=== PATIENT | female | born 1990 | race African-American/Black ===

== ENCOUNTER 2020-03-28 12:11 | Emergency (ER) | payer OTHER, SELFPAY ==
--- NOTE | 2020-03-28 12:32 | PC.NURSE ---
1232- Pt went from triage to restroom for urine sample.
[2020-03-28 12:33] VITALS: BP 134/79; PULSE 71; RESP 16; TEMP 36.7; O2SAT 99
--- NOTE | 2020-03-28 12:42 | ED.GENADULT ---
HPI - General Adult General Chief complaint: Urogenital-Female Stated complaint: POSSIBLE UTI Time Seen by Provider: 03/28/20 12:42 Source: patient Mode of arrival: ambulatory Limitations: no limitations History of Present Illness HPI narrative: 29-year-old female patient presents to the [facility] with complaints of urinary symptoms that started about 3 days ago. Patient states it started as vaginal itching today she noticed some pain with urination. Patient also complains of increased urgency. Denies any back pain but states she has had a little bit of diarrhea and nausea. Denies any vomiting. Denies any fevers, body aches or chills. Patient states she is supposed to be starting her period sometime next week. Patient states that she has not had any vaginal discharge no concerns for STDs. Related Data Allergies Allergy/AdvReac Type Severity Reaction Status Date / Time No Known Allergies Allergy Verified 03/28/20 12:40 Review of Systems Review of Systems: Narrative: CONSTITUTIONAL: Denies fever, chills, or sweats. EYES: Denies visual changes, redness, or discharge. ENT: Denies rhinorrhea, congestion, sore throat, or otalgia. CARDIOVASCULAR: Denies chest pain, palpitations, or edema. RESPIRATORY: Denies cough or dyspnea. GASTROINTESTINAL: Denies abdominal pain, nausea, vomiting, or diarrhea. GENITOURINARY: Denies dysuria or hematuria. Positive pain with urination, vaginal itching and urinary frequency x3 days SKIN: Denies rash or itching. MUSCULOSKELETAL: Denies back pain, joint pain, or myalgia. NEUROLOGIC: Denies headache, numbness, or weakness. PSYCHIATRIC: Denies anxiety or depression. [facility] Past Medical History Medical History (Updated 03/28/20 @ 12:53 by ARIANA Rodas) Angina at rest GERD (gastroesophageal reflux disease) Hypertension Ovarian cyst Seizures Surgical History Surgical History (Updated 03/28/20 @ 12:43 by ARIANA Rodas) H/O inguinal hernia repair History of appendectomy Hx of cholecystectomy Family History Family History (Updated 03/28/20 @ 12:46 by ARIANA Rodas) Father Hypertension Mother Hypertension Asthma Grandparent Diabetes mellitus Alzheimer disease Cerebrovascular accident Cardiac abnormality Other Sickle cell anemia Social History Social History (Updated 03/28/20 @ 12:47 by ARIANA Rodas) Smoking status: Former smoker Gender identity (if verbalized by the patient): Female Comments At the time of my signature I agree with nursing past medical history, surgical, social, and family history. There is no relevant family history pertinent to the presenting complaint. Exam Narrative: Exam Narrative: GENERAL: Well-appearing, well-nourished, and in no acute distress. HEAD: Normocephalic, atraumatic. EYES: PERRLA and EOMI. ENT: Nares clear, no rhinorrhea or epistaxis. Mucous membranes moist. NECK: Supple. No lymphadenopathy CHEST: Clear to auscultation. No respiratory distress. HEART: Regular rate and rhythm. No murmur heard. Normal peripheral pulses. ABDOMEN: Soft, nontender, nondistended, normal active bowel sounds. No CVA tenderness on percussion EXTREMITIES: Normal range of motion. No edema. SKIN: Warm, dry, no rash. NEURO: No focal deficits. Alert and oriented x3. Course Vital Signs Vital signs: Vital Signs Temperature 36.7 C 03/28/20 12:33 Pulse Rate 71 03/28/20 12:33 Respiratory Rate 16 03/28/20 12:33 Blood Pressure 134/79 03/28/20 12:33 Pulse Oximetry 99 03/28/20 12:33 Temperature 36.7 C 03/28/20 12:33 Pulse Rate 71 03/28/20 12:33 Respiratory Rate 16 03/28/20 12:33 Blood Pressure 134/79 03/28/20 12:33 Pulse Oximetry 99 03/28/20 12:33 Vital signs reviewed. Medical Decision Making Differential Diagnosis Differential Diagnosis: Differential diagnosis: Uncomplicated lower UTI, uncomplicated UTI, pyelonephritis Medicare patient is to obtain a urine dip and test
== END 2020-03-28 13:00 | disposition home or self-care (01) ==
PROVIDERS: Emergency Provider Nurse Practitioner Family; PCP Family Medicine
DX: N30.01 Acute cystitis with hematuria (principal); Z87.891 Personal history of nicotine dependence; K21.9 Gastro-esophageal reflux disease without esophagitis; I10 Essential (primary) hypertension
CPT/HCPCS: 81003; 81025; 87086; 87088; 99213; G0463

== ENCOUNTER 2020-06-05 14:31 | Emergency (ER) | payer OTHER, SELFPAY ==
[2020-06-05 14:53] VITALS: BP 123/62; PULSE 79; RESP 16; TEMP 37.2; O2SAT 100
--- NOTE | 2020-06-05 14:53 | ED.URI ---
HPI - URI/Sore Throat General Chief Complaint: Upper Respiratory Infection Stated Complaint: sore throat Time Seen by Provider: 06/05/20 14:45 Source: patient and RN notes reviewed Mode of arrival: ambulatory Limitations: no limitations History of Present Illness HPI Narrative: 30-year-old female presents concern for sore throat that started today. Reports daughter has similar symptoms. Reports she works at [employer], and has to be screened when she goes to work. Denies any known exposure to Covid. She denies shortness of breath, cough, fever, malaise, body aches, chills, sweats. Denies any intervention for symptoms. MD elicited complaint: sore throat Related Data Allergies Allergy/AdvReac Type Severity Reaction Status Date / Time No Known Allergies Allergy Verified 03/28/20 12:40 Review of Systems Review of Systems: Narrative: CONSTITUTIONAL: Denies malaise, chills, sweats, or fever. EYES: Denies visual changes, redness, or discharge. ENT: Denies rhinorrhea, congestion, sinus pain, otalgia. Reports sore throat. CARDIOVASCULAR: Denies chest pain, palpitations, or edema. RESPIRATORY: Denies cough dyspnea. GASTROINTESTINAL: Denies abdominal pain, nausea, vomiting, diarrhea SKIN: Denies rash or itching. MUSCULOSKELETAL: Denies myalgia. NEUROLOGIC: Denies headache. All systems reviewed & are unremarkable except as noted in HPI and below PMFSH Past Medical History Medical History (Updated 06/05/20 @ 15:16 by Kristin Rendon NP) Angina at rest GERD (gastroesophageal reflux disease) Hypertension Ovarian cyst Seizures Surgical History Surgical History (Updated 03/28/20 @ 12:43 by ARIANA Rodas) H/O inguinal hernia repair History of appendectomy Hx of cholecystectomy Family History Family History (Updated 03/28/20 @ 12:46 by ARIANA Rodas) Father Hypertension Mother Hypertension Asthma Grandparent Diabetes mellitus Alzheimer disease Cerebrovascular accident Cardiac abnormality Other Sickle cell anemia Social History Social History (Updated 03/28/20 @ 12:47 by ARIANA Rodas) Smoking status: Former smoker Gender identity (if verbalized by the patient): Female Comments At time of signature, agree with nursing past medical, surgical, social and family history. There is no relevant family history pertinent to the presenting complaint Exam Narrative: Exam Narrative: GENERAL: Well-appearing, well-nourished, and in no acute distress. HEAD: Normocephalic EYES: PERRLA, conjunctivae clear ENT: Nares clear, turbinates erythematous, clear discharge. Mucous membranes moist. TM pearly mahajan with dull light reflex bilaterally; no tragal tenderness. Oropharynx erythematous without lesions. Tonsils not enlarged and without exudate, no drooling, no hoarseness, no trismus, uvula midline. NECK: Supple. No lymphadenopathy CHEST: Clear to auscultation, breath sounds equal. No wheezing, rhonchi, rales, or stridor. No respiratory distress, speaks in full sentences. HEART: Regular rate and rhythm. No murmur heard. SKIN: Warm, dry, no rash. NEURO: Alert and oriented x3. PSYCH: Normal mood and affect Course Course Emergency Course: Patient is aware of diagnosis, understands and agrees to treatment plan. Anticipatory guidance given. Patient agrees to follow-up as directed and is aware of reasons to seek care at the emergency department. Portions of this record may have been created with voice recognition software Vital Signs Vital signs: Vital Signs Temperature 98.9 F 06/05/20 14:53 Pulse Rate 79 06/05/20 14:53 Respiratory Rate 16 06/05/20 14:53 Blood Pressure 123/62 06/05/20 14:53 Pulse Oximetry 100 06/05/20 14:53 Temperature 98.9 F 06/05/20 14:53 Pulse Rate 79 06/05/20 14:53 Respiratory Rate 16 06/05/20 14:53 Blood Pressure 123/62 06/05/20 14:53 Pulse Oximetry 100 06/05/20 14:53 Reviewed. MDM - URI/Sore Throat MDM Narrative Medical decision m
== END 2020-06-05 15:27 | disposition home or self-care (01) ==
PROVIDERS: Emergency Provider Nurse Practitioner; PCP Family Medicine
DX: J06.9 Acute upper respiratory infection, unspecified (principal); Z20.828 Contact with and (suspected) exposure to other viral communicable diseases; Z87.891 Personal history of nicotine dependence; K21.9 Gastro-esophageal reflux disease without esophagitis; I10 Essential (primary) hypertension
CPT/HCPCS: 87081; 87880; 99213; G0463

== ENCOUNTER 2020-06-06 06:55 | Outpatient (NON) | payer OTHER, SELFPAY ==
[2020-06-07 01:19] LABS: SARS-CoV-2 RNA PCR Negative
== END 2020-06-06 06:56 ==
LOC: ANHCOVIDDT 07:15
PROVIDERS: PCP Family Medicine; Visit Provider Nurse Practitioner
DX: J06.9 Acute upper respiratory infection, unspecified (principal); Z20.828 Contact with and (suspected) exposure to other viral communicable diseases
CPT/HCPCS: 87635; C9803; U0003

== ENCOUNTER 2020-06-24 13:12 | Emergency (ER) | payer OTHER, SELFPAY ==
[2020-06-24 13:25] VITALS: BP 109/69; PULSE 91; RESP 18; TEMP 36.5; O2SAT 100
--- NOTE | 2020-06-24 13:43 | ED.SKABFB ---
HPI - Skin/Abscess/Foreign Bdy General Chief complaint: Skin/Abscess/Foreign Body Stated complaint: rash on face Time Seen by Provider: 06/24/20 13:34 Source: patient and RN notes reviewed Mode of arrival: ambulatory Limitations: no limitations History of Present Illness HPI narrative: Patient presents today complaining of rash to her left exterior nose x2 days. Reports it started off as a burning sensation, but this has mostly resolved. States it is itching profusely. She has tried Neosporin, which causes a burning sensation. She is also trying Benadryl cream, which she states makes the symptoms worse. She has been wearing masks frequently as needed. Denies history of abscesses, boils, staph infections. No recent illness. MD complaint: rash Related Data Allergies Allergy/AdvReac Type Severity Reaction Status Date / Time No Known Allergies Allergy Verified 06/07/20 14:58 Review of Systems Review of Systems: Narrative: CONSTITUTIONAL: Denies body aches, fever, chills, or sweats. EYES: Denies visual changes, redness, or discharge. ENT: Denies rhinorrhea, congestion, sore throat, or otalgia. CARDIOVASCULAR: Denies chest pain, palpitations, or edema. RESPIRATORY: Denies cough or dyspnea. GASTROINTESTINAL: Denies abdominal pain, nausea, vomiting, or diarrhea. GENITOURINARY: Denies dysuria or hematuria. SKIN: Denies wounds. + Pruritic rash to face MUSCULOSKELETAL: Denies back pain, joint pain, or myalgia. NEUROLOGIC: Denies headache, numbness, tingling, or weakness. PSYCH: Denies depression or anxiety. [facility] Past Medical History Medical History (Updated 06/24/20 @ 13:45 by Lauren Underwood, [facility]) Angina at rest GERD (gastroesophageal reflux disease) Hypertension Ovarian cyst Seizures Surgical History Surgical History (System 06/07/20 @ 14:58 by Virginia Lopez) H/O inguinal hernia repair History of appendectomy Hx of cholecystectomy Family History Family History (System 06/07/20 @ 14:58 by Virginia Lopez) Father Hypertension Mother Hypertension Asthma Grandparent Diabetes mellitus Alzheimer disease Cerebrovascular accident Cardiac abnormality Father Hypertension Cerebrovascular accident Mother Asthma Family history of multiple sclerosis Hypertension Sibling Asthma Other Family history of allergic disorder Family history of cardiovascular disease Family history of malignant neoplasm Sickle cell anemia Social History Social History (System 06/07/20 @ 14:58 by Virginia Lopez) Smoking status: Former smoker Alcohol intake: never Gender identity (if verbalized by the patient): Female Comments At time of signature, I have reviewed and agree with nursing past medical, surgical, social and family history unless otherwise noted. Please see nursing chart for further information. There is no relevant family history pertinent to the presenting complaint Exam Narrative: Exam Narrative: GENERAL: Well-appearing, well-nourished, and in no acute distress. HEAD: Normocephalic, atraumatic. EYES: EOMI. No redness or drainage. Conjunctivae normal. ENT: Mucous membranes pink and moist. No rhinorrhea. Along the left external nare there is honey crusting lesions, slightly extending into the septal mucosa. NECK: Normal AROM. Supple. No lymphadenopathy. CHEST: No respiratory distress. EXTREMITIES: Normal range of motion. No edema. SKIN: Warm, dry. Capillary refill normal. Normal skin turgor. NEURO: No focal deficits. Alert and oriented x3. Gait steady. PSYCH: Normal affect. No signs of depression or anxiety. Course Vital Signs Vital signs: Vital Signs Temperature 97.7 F 06/24/20 13:25 Pulse Rate 91 06/24/20 13:25 Respiratory Rate 18 06/24/20 13:25 Blood Pressure 109/69 06/24/20 13:25 Pulse Oximetry 100 06/24/20 13:25 Temperature 97.7 F 06/24/20 13:25 Pulse Rate 91 06/24/20 13:25 Respiratory Rate 18 06/24/20 13:25 Blo
== END 2020-06-24 13:53 | disposition home or self-care (01) ==
PROVIDERS: Emergency Provider Nurse Practitioner; PCP Family Medicine
DX: L01.00 Impetigo, unspecified (principal); Z87.891 Personal history of nicotine dependence; I20.9 Angina pectoris, unspecified; K21.9 Gastro-esophageal reflux disease without esophagitis; I10 Essential (primary) hypertension
CPT/HCPCS: 99213; G0463

== ENCOUNTER 2020-11-25 19:10 | Emergency (ER) | payer OTHER, SELFPAY ==
--- NOTE | 2020-11-25 19:21 | ED.SKABFB ---
HPI - Skin/Abscess/Foreign Bdy General Chief complaint: Skin/Abscess/Foreign Body Stated complaint: rash Time Seen by Provider: 11/25/20 19:21 Source: patient Mode of arrival: ambulatory Limitations: no limitations History of Present Illness HPI narrative: Rubén Zamora is a 30 yo female who comes to express care with a rash on her face and around her eyes that is starting to spread-she denies any exposure to an allergen and states that last time she had strep she has similar symptoms Related Data Home Medications Medication Instructions Recorded Confirmed norgestimate-ethinyl estradiol tablet 11/25/20 [Sprintec (28)] Allergies Allergy/AdvReac Type Severity Reaction Status Date / Time No Known Allergies Allergy Verified 06/07/20 14:58 Review of Systems Review of Systems: Narrative: CONSTITUTIONAL: Denies fever, chills, sweats. EYES: Denies visual changes, redness, discharge. ENT: Denies rhinorrhea, congestion, has sore throat, otalgia. CARDIOVASCULAR: Denies chest pain, palpitations, edema. RESPIRATORY: Denies dyspnea, wheezing, cough GASTROINTESTINAL: Denies abdominal pain, nausea, vomiting, diarrhea. GENITOURINARY: Denies dysuria, hematuria, abnormal discharge SKIN: Has a rash. On face and around eyes and lips NEUROLOGIC: Denies numbness, or focal weakness. PSYCHIATRIC: Denies anxiety or depression. PMFSH Past Medical History Medical History Angina at rest GERD (gastroesophageal reflux disease) Hypertension Ovarian cyst Seizures Surgical History Surgical History H/O inguinal hernia repair History of appendectomy Hx of cholecystectomy Family History Family History Father Hypertension Mother Hypertension Asthma Grandparent Diabetes mellitus Alzheimer disease Cerebrovascular accident Cardiac abnormality Father Hypertension Cerebrovascular accident Mother Asthma Family history of multiple sclerosis Hypertension Sibling Asthma Other Family history of allergic disorder Family history of cardiovascular disease Family history of malignant neoplasm Sickle cell anemia Social History Social History Smoking status: Former smoker Alcohol intake: never Gender identity (if verbalized by the patient): Female Exam Narrative: Exam Narrative: GENERAL: This is a well-nourished, well-developed patient, in mild distress. Full exposure to pursue a stress strep and is developing a rash and sore throat HEAD: normocephalic, atraumatic. EYES: Sclera clear/white. Vision is grossly intact. EARS: External ears normal, . Hearing grossly intact. NOSE: External nose normal without nasal discharge, nares without redness, no rhinorrhea. THROAT: Mucous membranes moist, posterior pharynx erythema, skin around face is looking tight eyes are puffy, rash on face NECK: Neck supple, non-tender CARDIOVASCULAR: Regular rate and rhythm without murmurs, gallops, or rubs. RESPIRATORY: Clear to auscultation. Breath sounds equal bilaterally. No wheezes, rales, or rhonchi. GASTROINTESTINAL: Abdomen soft, non-tender, SKIN: warm, intact with lesions / branden face, good texture and turgor. NEURO: awake, alert, and oriented to person, place and time. There were no obvious focal neurologic abnormalities. Steady gait EXTREMITIES: Normal range of motion. BACK: Nontender without deformity Course Course Emergency Course: Mother had further exposure to these with strep that was diagnosed here earlier, mother is breaking out in rash and swelling of her face sore throat Started on amoxicillin and mupirocin, Medrol Dosepak for swelling of face Vital Signs Vital signs: Vital Signs Temperature 97.7 F 11/25/20 19:27 Pulse Rate 87 11/25/20 19:27 Respiratory Rate 16 11/25/20 1
[2020-11-25 19:27] VITALS: BP 133/77; PULSE 87; RESP 16; TEMP 36.5; O2SAT 100
== END 2020-11-25 19:50 | disposition home or self-care (01) ==
PROVIDERS: Emergency Provider Nurse Practitioner
DX: L01.00 Impetigo, unspecified (principal); Z20.818 Contact with and (suspected) exposure to other bacterial communicable diseases; K21.9 Gastro-esophageal reflux disease without esophagitis; I10 Essential (primary) hypertension; I25.10 Atherosclerotic heart disease of native coronary artery without angina pectoris
CPT/HCPCS: 99213; G0463

== ENCOUNTER 2021-07-27 14:01 | Emergency (ER) | payer OTHER, SELFPAY ==
--- NOTE | ~2021-07-27 | CT_ITS ---
EXAMINATION: CT abdomen pelvis wo con DATE: 07/27/2021 15:53 INDICATION: Abdominal mass. TECHNIQUE: Computed tomography (CT) of the abdomen and pelvis was performed without intravenous contr ast. Automated exposure control and iterative reconstruction technique were employed. The dose-length product was 1474.61 mGy-cm. COMPARISON: CT abdomen and pelvis 08/08/2016 FINDINGS: The visualized portions of the lung bases are clear without pneumonia or pleural effusion. The heart size is normal. No pericardial effusion. The liver is normal. There are changes of cholecys tectomy. The spleen, pancreas, adrenal glands, and kidneys are normal. There is no urolithiasis. Ther e are no dilated loops of bowel. There are changes of appendectomy. There are no pathologically enlar ged lymph nodes. There is no free intraperitoneal fluid. There is an umbilical hernia containing fat. There is mild thoracolumbar spondylosis. IMPRESSION: 1. Umbilical hernia containing fat. Reviewed, dictated and finalized at location B. HER
[2021-07-27 14:05] VITALS: BP 148/62; PULSE 88; RESP 15; TEMP 35.9; O2SAT 100
--- NOTE | 2021-07-27 14:34 | ED.ABDPAIN ---
HPI - Abdominal Pain General Chief Complaint: Abdominal Pain Stated Complaint: Abdominal pain Time Seen by Provider: 07/27/21 14:29 Source: patient Mode of arrival: ambulatory Limitations: no limitations History of Present Illness HPI narrative: Patient is a 31-year-old female complaining abdominal pain, I think it is a hernia , periumbilical area, 7 out of 10, nonradiating, dull, started 2 days ago. Patient denies any chest pain, shortness of breath, nausea, vomiting, diarrhea, fever, chills or urinary symptoms Related Data Home Medications Medication Instructions Recorded Confirmed norgestimate-ethinyl estradiol tablet 11/25/20 [Sprintec (28)] Allergies Allergy/AdvReac Type Severity Reaction Status Date / Time No Known Allergies Allergy Verified 06/07/20 14:58 Review of Systems Review of Systems: All systems reviewed & are unremarkable except as noted in HPI and below Constitutional: Constitutional: Denies body ache(s), Denies chills, Denies excessive sweating, Denies fatigue, Denies fever(s), Denies headache(s), Denies lethargy, Denies malaise, Denies weakness and Denies weight loss Eyes: Eyes: Denies blurry vision, Denies change in vision and Denies loss of vision ENT: Denies dizziness, Denies ear discharge, Denies headache(s), Denies lip swelling, Denies epistaxis, Denies nasal congestion, Denies neck pain, Denies throat swelling and Denies tongue swelling Cardiovascular: Cardiovascular: Denies chest pain, Denies chest pain at rest, Denies chest pain with activity, Denies diaphoresis, Denies rapid heart rate, Denies edema, Denies irregular heart rhythm, Denies lightheadedness, Denies palpitations, Denies dyspnea and Denies dyspnea on exertion Respiratory: Respiratory: Denies chest congestion, Denies cough, Denies hemoptysis, Denies dyspnea and Denies dyspnea on exertion Gastrointestinal: Gastrointestinal: Denies melena, Denies hematochezia, Denies diarrhea, Denies nausea, Denies vomiting and Denies hematemesis Musculoskeletal: Musculoskeletal: Denies abnormal gait, Denies deformity, Denies joint swelling, Denies limited range of motion, Denies neck pain and Denies numbness Neurologic: Denies Abnormal speech present, Denies abnormal gait, Denies confusion, Denies dizziness, Denies headache(s), Denies focal weakness, Denies loss of vision, Denies numbness, Denies Other visual disturbances, Denies Sensory deficit (Neuro) and Denies weakness Psychiatric: Psychiatric: Denies confusion, Denies depression, Denies auditory hallucinations, Denies homicidal ideation and Denies suicidal ideation Endocrine: Endocrine: Denies cold intolerance, Denies excessive sweating, Denies fatigue, Denies heat intolerance and Denies palpitations Hematologic/Lymphatic: Hematologic/Lymphatic: Denies easy bleeding and Denies easy bruising Allergic/Immunologic: Allergic/Immunologic: Denies lip swelling, Denies throat swelling and Denies tongue swelling PMFSH Past Medical History Medical History Angina at rest GERD (gastroesophageal reflux disease) Hypertension Ovarian cyst Seizures Surgical History Surgical History H/O inguinal hernia repair History of appendectomy Hx of cholecystectomy Family History Family History Father Hypertension Mother Hypertension Asthma Grandparent Diabetes mellitus Alzheimer disease Cerebrovascular accident Cardiac abnormality Father Hypertension Cerebrovascular accident Mother Asthma Family history of multiple sclerosis Hypertension Sibling Asthma Other Family history of allergic disorder Family history of cardiovascular disease Family history of malignant neoplasm Sickle cell anemia Social History Social History Smoking status: Former smoker [place]
[2021-07-27] MEDS: KETOROLAC 30 MG/ML VIAL (*BKC) IV PUSH (14:54)
[2021-07-27 14:56] LABS: Add Urine Microscopic? YES; Appearance Urine Cloudy (Clear); Bacteria Urine Trace /hpf; Bilirubin Urine Negative (Negative); Blood Urine Negative (Negative); Color Urine Yellow (Yellow); Glucose Urine UA Negative (Negative); Ketones Urine Trace mg/dL (Negative); Leukocyte Esterase Ur Negative LEU/UL (Negative); Mucus Urine Heavy /lpf; Nitrate Urine Negative (Negative); Protein Urine 1+ mg/dL (Negative); Specific Grav Ur 1.021 (1.001-1.035); Squamous Epithelial Cell Urine Many /hpf (Few); Urobilinogen Urine Negative mg/dL (<2.0)
[2021-07-27] MEDS: PROMETHAZINE HCL 25 MG/ML AMPUL 12.5 MG IV PUSH (14:56)
[2021-07-27 16:27] LABS: Pregnancy On Board Control Positive; Urine Pregnancy Test Negative
[2021-07-27 16:30] LABS: Basophils Percent Auto 0.7 % (0.2-1.2); Eosinophils Absolute Auto 0.4 K/mm3 (0-0.3); Eosinophils Percent Auto 6.9 % (0-4.4); Hematocrit 29.8 % (37.0-47.0); Hemoglobin 7.9 g/dL (12.0-15.0); Immature Granulocyte Absolute 0.01 K/mm3 (0.00-0.031); Immature Granulocyte Percent A 0.2 % (0-0.5); Immature Platelet Fraction Pct 8.7 % (0.9-11.2); Lymphocytes Absolute Auto 1.65 K/mm3 (0.9-3.2); Lymphocytes Percent Auto 27.3 % (18.3-44.2); Mean Corpuscular HGB Conc 26.5 g/dl (32-36); Mean Corpuscular Volume 56.7 fl (80-100); Monocytes Absolute Auto 0.3 K/mm3 (0.1-0.6); Monocytes Percent Auto 4.8 % (2.6-8.5); Neutrophils Absolute Auto 3.6 K/mm3 (1.3-6.7); Neutrophils Percent Auto 60.1 % (45.5-73.1); Platelet Count Result 274 k/mm3 (150-375); Red Blood Count 5.26 M/mm3 (4.2-5.4); Red Cell Distribution Width 22.9 % (11.5-14.5); White Blood Count 6.1 K/mm3 (4.5-10.0)
[2021-07-27 16:35] LABS: Alanine Aminotransferase 20 U/L (4-35); Albumin Level 4.5 g/dL (3.5-5.1); Alkaline Phosphatase 128 U/L (38-126); Anion Gap 8 mmol/L (8-16); Aspartate Amino Transferase 32 U/L (14-36); Bilirubin,Total 0.4 mg/dL (0.2-1.3); Blood Urea Nitrogen 12 mg/dL (7-17); Calcium 10.7 mg/dL (8.4-10.2); Carbon Dioxide 26 mmol/L (22-30); Chloride 105 mmol/L (98-107); Estimated CRCL calculation 113 ml/min; Estimated Glomerular Filt Rate > 60; Glucose 82 mg/dL (65-110); Lipase 27 U/L (23-300); Potassium 4.1 mmol/L (3.4-5.0); Sodium 139 mmol/L (137-145)
[2021-07-27 17:04] VITALS: BP 146/75; PULSE 80; RESP 14; O2SAT 98
== END 2021-07-27 17:04 | disposition home or self-care (01) ==
PROVIDERS: Emergency Provider Emergency Medicine; PCP Family Medicine
DX: K42.9 Umbilical hernia without obstruction or gangrene (principal); D64.9 Anemia, unspecified; K21.9 Gastro-esophageal reflux disease without esophagitis; I10 Essential (primary) hypertension; Z87.891 Personal history of nicotine dependence
CPT/HCPCS: 36415; 74176; 80053; 81001; 81025; 83690; 85025; 85055; 87086; 87088; 96374; 96375; 99284; J1885; J2550

== ENCOUNTER 2021-10-18 03:06 | Inpatient (IN) | payer OTHER, SELFPAY ==
[2021-10-18] VITALS (16 sets, daily range): BP systolic 100–176; BP diastolic 58–103; PULSE 62–93; RESP 16–18; TEMP 36.3–36.7; O2SAT 97–100; BMI 48.6
--- NOTE | 2021-10-18 | ECHO_ITS ---
Patient Info Name: Ritika Zamora Age: 31 years : 1990 Gender: Female Ht: 67 in Wt: 310 lbs BSA: 2.66 m2 HR: 78 bpm BP: 129 / 69 mmHg Heart Rhythm: Sinus Rhythm Technical Quality: Good Exam Date: 10/18/2021 3:45 PM Exam Location: [facility] Pulmonary Exam Room: 333 Patient Status: Outpatient Admit Date: 10/18/2021 Staff Ordering Physician: Amaury Walsh MD Surface Grinder Tender: Nidia Garcia RDCS Attending Provider: Amaury Walsh MD Exam Type: CA echo doppler color flow Study Info Indications - PE Complete two-dimensional, color flow and Doppler transthoracic echocardiogram is performed. Summary 1. Complete two-dimensional, color flow and Doppler transthoracic echocardiogram is performed. 2. Borderline left ventricular enlargement with normal wall thickness. Good systolic function of all segments with an estimated ejection fraction of 58%. Normal diastolic function. 3. Left atrial chamber dimension is mildly enlarged. 4. Mild pulmonary hypertension, estimated pulmonary arterial systolic pressure is 36 mmHg. 5. Right ventricle is not well seen but appears to have normal size and contractility. 6. No significant valve disease. 7. Normal sinus rhythm. Left Ventricle Left ventricular chamber dimension is mildly enlarged. Left ventricular systolic function is normal, estimated at 55-60%. There is no increased left ventricular wall thickness. Left ventricular septal wall motion is normal. The left ventricular diastolic function is normal. Right Ventricle Right ventricular chamber dimension is normal. Right ventricular systolic function is normal. Left Atria Left atrial chamber dimension is mildly enlarged. Right Atria Right atrial chamber dimension is normal. Aortic Valve The aortic valve is trileaflet. There is no aortic valve sclerosis. There is no aortic valve stenosis. There is no aortic valve regurgitation. Pulmonic Valve The pulmonic valve is normal. There is no pulmonic valve stenosis. There is no pulmonic regurgitation. Mitral Valve The mitral valve has normal leaflets. There is no mitral valve stenosis. There is no mitral valve regurgitation. Tricuspid Valve The tricuspid valve leaflets are normal. There is no significant tricuspid valve stenosis. There is trace tricuspid valve regurgitation. Mild pulmonary hypertension, estimated pulmonary arterial systolic pressure is 36 mmHg. Pericardium/Pleural The pericardium appears normal. There is no pericardial effusion. Inferior Vena Cava Normal inferior vena cava with >50% collapse upon inspiration consistent with Empty right atrial pressure, 10 mmHg. Aorta The aortic root size at the sinus of Valsalva is normal. The prox ascending aorta size is normal. Left Ventricular Outflow Tract Name Value Normal LVOT 2D LVOT Diameter 2.1 cm LVOT Doppler LVOT Peak Gradient 8 mmHg LVOT Mean Gradient 5 mmHg LVOT VTI 31 cm LVOT VTI/AV VTI Ratio 0.8 LVOT Stroke V
--- NOTE | ~2021-10-18 | CT_ITS ---
EXAMINATION: CTA chest PE abdomen pel DATE: 10/18/2021 04:46 INDICATION: Chest pain. TECHNIQUE: Computed tomography angiography (CTA) of the chest was performed with 100 mL Omnipaque-350 intravenous contrast timed to evaluate the pulmonary arteries. Coronal maximum intensity projection 3D-reconstructions were created by the technologist. Computed tomography (CT) of the abdomen and pelv is was performed with intravenous contrast. Automated exposure control and iterative reconstruction t echnique were employed. The dose-length product was 2503.49 mGy-cm. COMPARISON: CT abdomen and pelvis 07/27/2021 FINDINGS: CTA chest: There is no pneumonia or pleural effusion. The heart size is normal. No pericardial effusi on. There is a filling defect in a left upper lobe pulmonary artery. There is mild thoracic spondylos is. CT abdomen and pelvis: The liver is normal. There are changes of cholecystectomy. The spleen, pancrea s, adrenal glands, and kidneys are normal. There is an umbilical hernia containing fat. There are no dilated loops of bowel. There are changes of appendectomy. There are no pathologically enlarged lymph nodes. There is no free intraperitoneal fluid. There is mild lumbar spondylosis. IMPRESSION: 1. Filling defect in a left upper lobe pulmonary artery, consistent with a pulmonary embolus. Motion artifact mildly decreases sensitivity and specificity. 2. Umbilical hernia containing fat. Reviewed, dictated and finalized at location A. IMPRESSION: 1. Filling defect in a left upper lobe pulmonary artery, consistent with a pulm onary embolus. Motion artifact mildly decreases sensitivity and specificity. 2. Umbilical hernia containing fat.
--- NOTE | ~2021-10-18 | US_ITS ---
EXAMINATION: US venous doppler [facility] DATE: 10/18/2021 17:12 INDICATION: Pulmonary embolus. Chest pain. TECHNIQUE: Foster scale images without and with compression and Doppler images of the bilateral lower e xtremity veins were obtained. COMPARISON: None FINDINGS: The right common femoral vein, profunda femoral vein, femoral vein, popliteal vein, peroneal trunk, p osterior tibial veins, and greater saphenous vein are patent. The left common femoral vein, profunda femoral vein, femoral vein, popliteal vein, peroneal trunk, po sterior tibial veins, and greater saphenous vein are patent. IMPRESSION: 1. Patent bilateral lower extremity veins. No evidence of deep venous thrombosis. Reviewed, dictated and finalized at location K. IMPRESSION: 1. Patent bilateral lower extremity veins. No evidence of deep venous thrombosi s.
--- NOTE | ~2021-10-18 | XR_ITS ---
EXAMINATION: XR chest 1V portable DATE: 10/18/2021 04:09 INDICATION: Chest pain. TECHNIQUE: A single frontal view of the chest was obtained. COMPARISON: Chest 2 views 08/08/2016, chest CT 10/18/2021 FINDINGS: The chest demonstrates clear lungs without pneumonia, pleural effusion, or pneumothorax. Th e heart size is normal. IMPRESSION: 1. No acute cardiopulmonary disease. Reviewed, dictated and finalized at location A.
--- NOTE | 2021-10-18 03:18 | ECG_ITS ---
Measurements Intervals [place] Rate: 92 P: 62 MD: 150 QRS: 43 QRSD: 86 T: 42 QT: 348 QTc: 431 Interpretive Statements SINUS RHYTHM POSSIBLE LEFT ATRIAL ENLARGEMENT [-0.1mV P WAVE IN V1/V2] NO PREVIOUS ECG AVAILABLE FOR COMPARISON Electronically Signed On 10-18-2021 14:21:04 CDT by Shantell Jordan M.D.
--- NOTE | 2021-10-18 03:24 | ED.CHESTPAIN ---
HPI - Chest Pain General Chief Complaint: Chest Pain <Tamara Mcnamara MD - Last Filed: 10/18/21 03:29> Stated Complaint: chest pain and abd pain with nausea <Tamara Mcnamara MD - Last Filed: 10/18/21 03:29> Time Seen by Provider: 10/18/21 03:08 <Tamara Mcnamara MD - Last Filed: 10/18/21 03:29> Source: patient <Tamara Mcnamara MD - Last Filed: 10/18/21 03:29> Mode of arrival: ambulatory <Tamara Mcnamara MD - Last Filed: 10/18/21 03:29> Limitations: no limitations <Tamara Mcnamara MD - Last Filed: 10/18/21 03:29> History of Present Illness HPI narrative: This is a 31 year old female who presents for evaluation of abdominal pain. She developed diffuse abdominal pain 3 hours ago. Her pain initially was migratory and it would worsen with position. She describes her pain as cramping. Her pain continued to worsen and then she developed midsternal, epigastric pain. She also reports nausea, vomiting with her pain. She denies cough, fever, shortness of breath or back pain. She had similar pain to this 3 months ago , and she was evaluated in ER. She was diagnosed with a hernia and discharged home. She reports intermittent <Tamara Mcnamara MD - Last Filed: 10/18/21 03:29> Related Data Allergies/Adverse Reactions: Allergies Allergy/AdvReac Type Severity Reaction Status Date / Time No Known Allergies Allergy Verified 06/07/20 14:58 <Tamara Mcnamara MD - Last Filed: 10/18/21 03:29> [facility] Past Medical History Medical History: Medical History Angina at rest GERD (gastroesophageal reflux disease) Hypertension Ovarian cyst Seizures <Tamara Mcnamara MD - Last Filed: 10/18/21 03:29> Surgical History Surgical History: Surgical History H/O inguinal hernia repair History of appendectomy Hx of cholecystectomy <Tamara Mcnamara MD - Last Filed: 10/18/21 03:29> Family History Family History: Family History Father Hypertension Mother Hypertension Asthma Grandparent Diabetes mellitus Alzheimer disease Cerebrovascular accident Cardiac abnormality Father Hypertension Cerebrovascular accident Mother Asthma Family history of multiple sclerosis Hypertension Sibling Asthma Other Family history of allergic disorder Family history of cardiovascular disease Family history of malignant neoplasm Sickle cell anemia <Tamara Mcnamara MD - Last Filed: 10/18/21 03:29> Social History Social History: Social History Smoking status: Former smoker Alcohol intake: never Gender identity (if verbalized by the patient): Female <Tamara Mcnamara MD - Last Filed: 10/18/21 03:29> Course Course Emergency Course: Care turned to myself at shift change patient seen by myself agree with initial H&P. Reviewed old records patient with chronic anemia Called discussed with radiology Dr. Norwood after his review of the study he believes that is definitively a pulmonary embolism and patient does not require VQ scan Discussed with Dr Walsh agrees with admission Discussed with patient and family results of workup and diagnosis. Discussed need for admission. Patient and family understand and agree to current treatment plan <Mateo Woodward DO - Last Filed: 10/18/21 08:23> Vital Signs Vital signs: Vital Signs Temperature 97.3 F L 10/18/21 03:11 Pulse Rate 93 10/18/21 03:11 Respiratory Rate 18 10/18/21 03:11 Blood Pressure 176/103 H 10/18/21 03:11 Pulse Oximetry 100 10/18/21 03:11 Temperature 97.3 F L 10/18/21 03:11 Pulse Rate 63 10/18/21 07:52 Respiratory Rate 16 10/18/21 07:52 Blood Pressure 113/79 10/18/21 07:52 Pulse Oximetry 97 10/18/21 07:52
[2021-10-18] MEDS: ONDANSETRON INJ 4 MG/2 ML VIAL IV PUSH (03:25)
[2021-10-18 03:31] LABS: Basophils Percent Auto 0.6 % (0.2-1.2); Eosinophils Absolute Auto 0.3 K/mm3 (0-0.3); Eosinophils Percent Auto 4.2 % (0-4.4); Hematocrit 28.7 % (37.0-47.0); Hemoglobin 7.5 g/dL (12.0-15.0); Immature Granulocyte Absolute 0.01 K/mm3 (0.00-0.031); Immature Granulocyte Percent A 0.2 % (0-0.5); Immature Platelet Fraction Pct 10.4 % (0.9-11.2); Lymphocytes Absolute Auto 1.97 K/mm3 (0.9-3.2); Lymphocytes Percent Auto 29.7 % (18.3-44.2); Mean Corpuscular HGB Conc 26.1 g/dl (32-36); Mean Corpuscular Hemoglobin 14.6 pg (26-34); Mean Corpuscular Volume 56.1 fl (80-100); Monocytes Absolute Auto 0.4 K/mm3 (0.1-0.6); Monocytes Percent Auto 6.5 % (2.6-8.5); Neutrophils Absolute Auto 3.9 K/mm3 (1.3-6.7); Neutrophils Percent Auto 58.8 % (45.5-73.1); Platelet Count Result 344 k/mm3 (150-375); Red Blood Count 5.12 M/mm3 (4.2-5.4); Red Cell Distribution Width 23.7 % (11.5-14.5); White Blood Count 6.6 K/mm3 (4.5-10.0)
[2021-10-18] MEDS: SODIUM CHLORIDE 0.9% IV 1,000 ML 999 ML IV CONT (03:31)
[2021-10-18] MEDS: MORPHINE SULFATE (*CRX) 4 MG/ML INJ IV PUSH (03:32)
[2021-10-18 03:49] LABS: Alanine Aminotransferase 15 U/L (4-35); Albumin Level 4.1 g/dL (3.5-5.1); Alkaline Phosphatase 122 U/L (38-126); Anion Gap 5 mmol/L (8-16); Aspartate Amino Transferase 33 U/L (14-36); Bilirubin,Total 0.2 mg/dL (0.2-1.3); Blood Urea Nitrogen 14 mg/dL (7-17); Calcium 10.1 mg/dL (8.4-10.2); Carbon Dioxide 25 mmol/L (22-30); Chloride 108 mmol/L (98-107); Estimated CRCL calculation 129 ml/min; Estimated Glomerular Filt Rate > 60; Glucose 107 mg/dL (65-110); Lipase 40 U/L (23-300); Potassium 4.2 mmol/L (3.4-5.0); Sodium 138 mmol/L (137-145)
[2021-10-18 03:51] LABS: Partial Thromboplastin Time 30.4 SECONDS (22.3-36.8); Prothrombin Time 12.6 Seconds (11.1-14.7)
[2021-10-18 03:54] LABS: D Dimer 1.08 ug/mL (<0.48)
[2021-10-18 04:00] LABS: Troponin I < 0.012 ng/mL (0.000-0.034)
[2021-10-18 04:11] LABS: Anisocytosis 1+ (NORMAL); Hypochromasia 1+ (NORMAL); Large Platelets Present; Ovalocytes 1+ (NORMAL); Platelet Estimate Adequate (Adequate); Poikilocytosis 1+ (NORMAL); Target Cells 1+ (NORMAL)
[2021-10-18 07:07] LABS: Troponin I < 0.012 ng/mL (0.000-0.034)
[2021-10-18] MEDS: ENOXAPARIN 60 MG/0.6 ML SYRINGE 55 MG SUB-Q (09:18)
[2021-10-18] MEDS: ENOXAPARIN 80 MG/0.8 ML SYRINGE SUB-Q (09:18)
[2021-10-18 09:47] LABS: Troponin I < 0.012 ng/mL (0.000-0.034)
--- NOTE | 2021-10-18 11:00 | PC.NURSE ---
This patient, Ritika Zamora, was admitted to [facility] Surg Room 333-01. Patient/family oriented to hospital policies and general routines including ID bracelet, bed and alarms, visiting hours, pain management, procedures, bathroom and other care routines, personal items, smoking policy, room service/diet, and visiting hours. Report received from Saul. Information on how to activate the Rapid Response Team has been discussed. Patient/Family are encouraged to report perceived risks to care and to ask questions if they do not understand what they are told or what they should do.
--- NOTE | 2021-10-18 11:51 | PM.IMHP ---
H&P: HPI History of Present Illness Date/Time: 10/18/21 11:51 Chief Complaint: Abdominal pain Narrative: 31yo female with possible HTN, anemia and GERD presents to the ED with complaints on abdominal pain. Patient was awoken from sleep around midnight with abdominal pain that she describes as contractions radiating to her hips and back. It was achy with occasional sharp pains. It started periumbilical. No dysuria or hematuria. No vaginal discharge. Her last bowel movement was yesterday. No history of constipation. No melena or hematochezia but does have occasional bright red blood in stool she feels related to her hemorrhoids. She had a colonoscopy around 2016 that was normal except for internal hemorrhoids. She has no history of IBD, IBS or colon cancer. She had this same symptom 3 months ago but it was not as severe. She was seen in the emergency room at that time and a CT scan showed umbilical hernia containing fat. Abdominal pain was positional. When she was walking up stairs she developed lower chest pain that was sharp in nature. She denies that was pleuritic. She denies shortness of breath. She does have a cough on occasion but this seems more chronic related to her COVID infection in June 2021. She is not vaccinated against COVID. No recent long car rides, plane flights or other travel. No recent surgery or prolonged confinement. She does have chronic iron deficiency anemia. She has monthly periods with her last period 2 days ago. She is not on oral contraception. She uses condoms for prevention. She does take iron twice a day when she remembers it. She goes through about 60 pads per cycle. She has not seen her travel services professional doctor for over 4 years. Patient drove to warp picker her who was at work and they drove together to the emergency room. When she was pulling into the parking lot she was belching then had episode of nausea and vomiting. The belching did not make the pain better. Patient presents to the emergency room around 3am. Blood pressure was 176/103. She was noted to have a microcytic anemia with a hemoglobin of 7.5. Hemoglobin about the same as it was in July of this year. PT and PTT was normal. D-dimer elevated at 1.1. Troponin were negative x3. Lipase was normal. CMP was normal. Chest x-ray was clear. EKG showed possible left atrial enlargement, normal sinus rhythm. CTA of the chest, abdomen pelvis was performed. Results showing a filling defect in the left upper lobe pulmonary artery consistent with PE. She also has an umbilical hernia containing fat. She was treated with Zofran and morphine. She was started on Lovenox. She was admitted for further care for PE and chronic anemia. Review of Systems Review of Systems: All systems reviewed & are unremarkable except as noted in HPI and below PMFSH Past Medical History Medical History (Updated 10/18/21 @ 13:30 by Amaury Walsh MD) Anemia GERD (gastroesophageal reflux disease) Hypertension Ovarian cyst Surgical History Surgical History (Updated 10/18/21 @ 13:23 by Amaury Walsh MD) History of appendectomy Hx of cholecystectomy Family History Family History (Updated 10/18/21 @ 13:26 by Amaury Walsh MD) Grandparent Diabetes mellitus Alzheimer disease Cardiac abnormality Cerebrovascular accident Malignant neoplasm of prostate Father Hypertension Cerebrovascular accident Mother Ovarian cancer Family history of malignant neoplasm Hypertension Asthma Sibling Asthma Other Family history of allergic disorder Family history of cardiovascular disease Social History Social History (Updated 10/18/21 @ 13:28 by Amaury Walsh MD) Social History: 4 cigars/day. Has smoked off and on for about 3 years. She drinks 1 alcoholic drink per month. No drug use. She lives with her and 2 children. She is a full code. She nominates her to be the individual would make medical
[2021-10-18] MEDS: PANTOPRAZOLE 40 MG TABLET PO (14:54)
[2021-10-18 15:29] LABS: Iron 16 ug/dL (37-170)
[2021-10-18 15:39] LABS: Percent Iron Saturation 4 % (20-50)
[2021-10-18 16:06] LABS: Ferritin 4.44 ng/mL (6.24-137)
[2021-10-18] MEDS: FERROUS SULFATE 324 MG TABLET PO (17:18)
[2021-10-18] MEDS: IRON SUCROSE COMPLEX 100 MG in SODIUM CHLORIDE 0.9% IV 50 ML 220 MG IVPB (20:00)
[2021-10-18] MEDS: APIXABAN 5 MG TABLET 10 MG PO (20:01)
[2021-10-19] VITALS (8 sets, daily range): BP systolic 109–133; BP diastolic 66–79; PULSE 64–107; RESP 16–21; TEMP 36.3–36.8; O2SAT 100
[2021-10-19 06:24] LABS: Basophils Percent Auto 0.6 % (0.2-1.2); Eosinophils Absolute Auto 0.3 K/mm3 (0-0.3); Eosinophils Percent Auto 5.6 % (0-4.4); Hematocrit 26.9 % (37.0-47.0); Hemoglobin 7.2 g/dL (12.0-15.0); Immature Granulocyte Absolute 0.01 K/mm3 (0.00-0.031); Immature Granulocyte Percent A 0.2 % (0-0.5); Immature Platelet Fraction Pct 10.8 % (0.9-11.2); Lymphocytes Absolute Auto 1.83 K/mm3 (0.9-3.2); Lymphocytes Percent Auto 35.1 % (18.3-44.2); Mean Corpuscular HGB Conc 26.8 g/dl (32-36); Monocytes Absolute Auto 0.4 K/mm3 (0.1-0.6); Monocytes Percent Auto 6.9 % (2.6-8.5); Neutrophils Absolute Auto 2.7 K/mm3 (1.3-6.7); Neutrophils Percent Auto 51.6 % (45.5-73.1); Platelet Count Result 329 k/mm3 (150-375); Red Cell Distribution Width 23.3 % (11.5-14.5); White Blood Count 5.2 K/mm3 (4.5-10.0)
[2021-10-19 06:30] LABS: Anion Gap 3 mmol/L (8-16); Blood Urea Nitrogen 10 mg/dL (7-17); Calcium 9.3 mg/dL (8.4-10.2); Carbon Dioxide 27 mmol/L (22-30); Chloride 107 mmol/L (98-107); Estimated CRCL calculation 128 ml/min; Estimated Glomerular Filt Rate > 60; Glucose 87 mg/dL (65-110); Sodium 137 mmol/L (137-145)
[2021-10-19 07:09] LABS: Hypochromasia 2+ (NORMAL); Microcytosis 1+ (NORMAL); Ovalocytes 1+ (NORMAL); Platelet Estimate Adequate (Adequate)
[2021-10-19] MEDS: MULTIVITAMINS THERAPEUTIC TAB (*BKC) 1 TABLET PO (09:14)
[2021-10-19] MEDS: FERROUS SULFATE 324 MG TABLET PO ×3 (09:15→17:10)
[2021-10-19] MEDS: PANTOPRAZOLE 40 MG TABLET PO (09:15)
[2021-10-19] MEDS: APIXABAN 5 MG TABLET 10 MG PO ×2 (09:16→20:16)
[2021-10-19] MEDS: HYDROcodone/acetaminophen (*CRX) 5-325 MG TABLET 1 TAB PO (11:19)
[2021-10-19] MEDS: IRON SUCROSE COMPLEX 100 MG in SODIUM CHLORIDE 0.9% IV 50 ML 220 MG IVPB (11:20)
[2021-10-19] MEDS: IRON SUCROSE COMPLEX 200 MG in SODIUM CHLORIDE 0.9% IV 50 ML 100 MG IVPB (14:06)
--- NOTE | 2021-10-19 15:20 | PM.IMPN ---
Progress Note: A&P Assessment and Plan (1) Pulmonary embolism: Code(s): I26.99 - Other pulmonary embolism without acute cor pulmonale Status: Acute Assessment and Plan: Small left upper lobe PE. No risk factors to suggest why she would have PE. She is not on control. No recent travel. Her job is not sedentary. Possibly related to her obesity. Was started on Lovenox. Will check lower extremity venous Dopplers and echocardiogram. Care coordination consult for pricing for Eliquis. 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 patient being treated with Lovenox will switch her over to oral anticoagulation social service is working on possibility of Eliquis, patient also has anemia due to iron deficiency as patient has extensive bleeding during her menses, patient is placed on IV iron, will monitor hemoglobin and will transfuse as needed, will continue to monitor possibly discharge the patient home tomorrow. (2) Anemia: Code(s): D64.9 - Anemia, unspecified Status: Acute Assessment and Plan: Patient with a history of iron deficiency related to her heavy menses. Encouraged her to follow-up with her ob/gyn physician physician. Will check iron studies. If iron deficiency is confirmed, may do IV iron while hospitalized. Continue oral iron for now. Follow H&H. (3) Hypertension: Code(s): I10 - Essential (primary) hypertension Status: Acute Assessment and Plan: Patient is not on medications for hypertension. She states that she was unaware that she had high blood pressure listed in her medical record. Blood pressure was elevated significantly on admission but has since normalized. Will continue to monitor for now. (4) GERD (gastroesophageal reflux disease): Code(s): K21.9 - Gastro-esophageal reflux disease without esophagitis Status: Acute Assessment and Plan: Patient with history of acid reflux. Some of her symptoms could be related to this. Will start Protonix. (5) Tobacco abuse: Code(s): Z72.0 - Tobacco use Status: Acute Assessment and Plan: Patient was educated about the benefits of smoking cessation. (6) Morbid obesity: Code(s): E66.01 - Morbid (severe) obesity due to excess calories Status: Acute Assessment and Plan: Patient was educated about the benefits of leading a healthy lifestyle Subjective Date/time seen: 10/19/21 15:20 Small left upper lobe PE. No risk factors to suggest why she would have PE. She is not on control. No recent travel. Her job is not sedentary. Possibly related to her obesity. Was started on Lovenox. Will check lower extremity venous Dopplers and echocardiogram. Care coordination consult for pricing for Eliquis. 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 patient being treated with Lovenox will switch her over to oral anticoagulation social service is working on possibility of Eliquis, patient also has anemia due to iron deficiency as patient has extensive bleeding during her menses, patient is placed on IV iron,
[2021-10-20] VITALS (19 sets, daily range): BP systolic 110–141; BP diastolic 59–94; PULSE 74–91; RESP 14–18; TEMP 36.2–36.8; O2SAT 99–100
[2021-10-20 02:33] LABS: IFOB Positive Control Positive; Immunochemical Fecal Occult Bl Negative (N)
[2021-10-20] MEDS: IRON SUCROSE COMPLEX 100 MG in SODIUM CHLORIDE 0.9% IV 50 ML 220 MG IVPB (08:01)
[2021-10-20] MEDS: FERROUS SULFATE 324 MG TABLET PO ×3 (08:01→16:25)
[2021-10-20] MEDS: HYDROcodone/acetaminophen (*CRX) 5-325 MG TABLET 1 TAB PO (08:02)
[2021-10-20] MEDS: PANTOPRAZOLE 40 MG TABLET PO (08:02)
[2021-10-20] MEDS: APIXABAN 5 MG TABLET 10 MG PO ×2 (08:02→20:08)
[2021-10-20] MEDS: MULTIVITAMINS THERAPEUTIC TAB (*BKC) 1 TABLET PO (08:02)
[2021-10-20 08:40] LABS: Hematocrit 26.2 % (37.0-47.0); Hemoglobin 7.2 g/dL (12.0-15.0); Mean Corpuscular HGB Conc 27.5 g/dl (32-36); Mean Corpuscular Hemoglobin 15.2 pg (26-34); Mean Corpuscular Volume 55.4 fl (80-100); Platelet Count Result 366 k/mm3 (150-375); Red Blood Count 4.73 M/mm3 (4.2-5.4); Red Cell Distribution Width 23.6 % (11.5-14.5); White Blood Count 7.2 K/mm3 (4.5-10.0)
[2021-10-20 09:04] LABS: Troponin I < 0.012 ng/mL (0.000-0.034)
[2021-10-20] MEDS: SODIUM CHLORIDE 0.9% IV 250 ML 30 ML IV CONT (09:49)
--- NOTE | 2021-10-20 15:38 | PM.IMPN ---
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 patient being treated with Lovenox will switch her over to oral anticoagulation social service is working on possibility of Eliquis, patient also has anemia due to iron deficiency as patient has extensive bleeding during her menses, patient is placed on IV iron, will monitor hemoglobin and will transfuse as needed, will continue to monitor possibly discharge the patient home tomorrow. 10/20/2021: Pt having chest pains this morning, continue to watch today. (2) Anemia: Code(s): D64.9 - Anemia, unspecified Status: Acute Assessment and Plan: Patient with a history of iron deficiency related to her heavy menses. Hb is low, blood transfusion ordered. (3) Hypertension: Code(s): I10 - Essential (primary) hypertension Status: Acute Assessment and Plan: Pts Bp is high. Pt will benefit from starting Bp medications. (4) GERD (gastroesophageal reflux disease): Code(s): K21.9 - Gastro-esophageal reflux disease without esophagitis Status: Acute Assessment and Plan: Patient with history of acid reflux. Pt on protonix (5) Tobacco abuse: Code(s): Z72.0 - Tobacco use Status: Acute Assessment and Plan: Patient was educated about smoking cessation (6) Morbid obesity: Code(s): E66.01 - Morbid (severe) obesity due to excess calories Status: Acute Assessment and Plan: Patient was educated about weight loss Subjective Date/time seen: 10/20/21 15:38 Interval history: 31yo female with possible HTN, anemia and GERD presents to the ED with complaints on abdominal pain. Patient was awoken from sleep around midnight with abdominal pain that she describes as contractions radiating to her hips and back. It was achy with occasional sharp pains. CTA of the chest, abdomen pelvis was performed. Results showing a filling defect in the left upper lobe pulmonary artery consistent with PE. 10/20 Pt complaining of chest pain today, troponin is negative, continue to observe today Review of Systems Review of Systems: All systems reviewed & are unremarkable except as noted in HPI and below Exam Narrative: Morbidly obese LUNGS: normal respiratory effort ABDO: obese distended Lower extremities: no edema SKIN: nonjaundiced Objective Data Vital Signs Vital Signs: Vital Signs - 24 hr 10/19/21 16:23 10/19/21 20:00 10/19/21 21:37 Temperature 36.8 C Pulse Rate 88 88 Respiratory Rate 18 18 Blood Pressure 132/71 Pulse Oximetry 100 100 100 10/20/21 00:00 10/20/21 04:00 10/20/21 05:41 Temperature 36.8 C Pulse Rate 81 77 85 Respiratory Rate 18 Blood Pressure 110/59 L Pulse Oximetry 100 10/20/21 08:00 10/20/21 08:05 10/20/21 08:07 Temperature 36.4 C Pulse Rate 86 91 Respiratory Rate 18 Blood Pressure 133/77 134/94 H Pulse Oximetry 100 10/20/21 08:09 10/20/21 09:51 10/20/21 10:12 Temperature 36.6 C 36.6 C Pulse Rate 80 74 Respiratory Rate 18 18 Blood Pressure 122/65 115/63 Pulse Oximetry 99 100 99 10/20/21 10:53 10/20/21 11:12 10/20/21 12:00 Temperature 36.8 C 36.8 C Pulse Rate 75 77 75 Respiratory Rate 16 18 Blood Pressure 136/71 134/68 Pulse Oximetry 100 100 10/20/21 12:12 10/20/21 13:25 10/20/21 14:00 Te
[2021-10-21] VITALS (7 sets, daily range): BP systolic 111–149; BP diastolic 56–88; PULSE 66–85; RESP 18–20; TEMP 36.2–36.4; O2SAT 99–100
[2021-10-21] MEDS: ONDANSETRON INJ 4 MG/2 ML VIAL IV PUSH (05:07)
[2021-10-21 06:14] LABS: Hemoglobin 8.5 g/dL (12.0-15.0); Immature Platelet Fraction Pct 11.6 % (0.9-11.2); Mean Corpuscular HGB Conc 27.4 g/dl (32-36); Mean Corpuscular Hemoglobin 16.2 pg (26-34); Mean Corpuscular Volume 59.2 fl (80-100); Platelet Count Result 373 k/mm3 (150-375); Red Blood Count 5.24 M/mm3 (4.2-5.4); Red Cell Distribution Width 27.5 % (11.5-14.5); White Blood Count 8.1 K/mm3 (4.5-10.0)
[2021-10-21] MEDS: PANTOPRAZOLE 40 MG TABLET PO (08:20)
[2021-10-21] MEDS: APIXABAN 5 MG TABLET 10 MG PO ×2 (08:20→20:27)
[2021-10-21] MEDS: MULTIVITAMINS THERAPEUTIC TAB (*BKC) 1 TABLET PO (08:20)
[2021-10-21] MEDS: FERROUS SULFATE 324 MG TABLET PO ×3 (08:20→16:08)
[2021-10-21] MEDS: IRON SUCROSE COMPLEX 100 MG in SODIUM CHLORIDE 0.9% IV 50 ML 220 MG IVPB (08:20)
--- NOTE | 2021-10-21 10:59 | PM.DS ---
DS: Admitting Diagnosis Discharge Date October 21, 2021 Admitting Diagnosis PE DS: Discharge Diagnosis Discharge Diagnosis (1) Pulmonary embolism: Code(s): I26.99 - Other pulmonary embolism without acute cor pulmonale Status: Acute Assessment and Plan: Patient will be discharged on Eliquis. Follow-up with primary care physician. Patient is aware she will need follow-up with a data architect manager for coagulopathy workup. (2) Anemia: Code(s): D64.9 - Anemia, unspecified Status: Acute Assessment and Plan: Secondary to iron-deficiency anemia. She will be started on iron. Patient reports heavy menses for this extended area. Time. History of iron-deficiency anemia in the past. Secondary to heavy menses (3) Hypertension: Code(s): I10 - Essential (primary) hypertension Status: Acute Assessment and Plan: Monitor, follow primary care physician (4) GERD (gastroesophageal reflux disease): Code(s): K21.9 - Gastro-esophageal reflux disease without esophagitis Status: Acute Assessment and Plan: Monitor. (5) Tobacco abuse: Code(s): Z72.0 - Tobacco use Status: Acute Assessment and Plan: Patient was educated about smoking cessation (6) Morbid obesity: Code(s): E66.01 - Morbid (severe) obesity due to excess calories Status: Acute Assessment and Plan: Patient was educated about weight loss DS: Summary Hospital Course Hospital Course: YN. See plan and diagnosis Time Spent with Patient Time attestation: Total time spent providing and/or coordinating discharge services: Exam Narrative: Morbidly obese LUNGS: normal respiratory effort ABDO: obese distended Lower extremities: no edema SKIN: nonjaundiced DS: Data Data Completed and Pending Labs on day of discharge: Labs from last 24 hours 10/21/21 10/20/21 05:46 08:29 WBC 8.1 RBC 5.24 Hgb 8.5 L Hct 31.0 L MCV 59.2 L D MCH 16.2 L D MCHC 27.4 L RDW 27.5 H Plt Count 373 MPV TNP % Immature Plt Fraction 11.6 H Blood Type O Positive Antibody Screen Negative Crossmatch See Detail Discharge Plan Discharge Attending physician on discharge: Raúl Tayolr Discharging Clinician: Raúl Taylor Anticipated Discharge Date/Time: 10/21/21 10:49 Patient Disposition: Home, Self-Care Activity: no preference Diet: as tolerated Patient Instructions: Antibiotic Form, Apixaban (By mouth), Pulmonary Embolism (DC) Stand Alone Forms: General Discharge Information Follow-up/Referrals: Taiwo Beckman MD [Primary Care Provider] - Discharge Medications: New ferrous sulfate 325 mg (65 mg iron) Tablet 324 mg PO TIDWM 30 Days Qty: 90 RF: 0 Eliquis 5 mg Tablet 10 mg PO Q12HR 6 Days Qty: 24 RF: 0 Eliquis 5 mg Tablet 5 mg PO Q12HR 30 Days Qty: 60 RF: 0 Continued Adults Multivitamin 1 tablet PO DAILY RF: 0 Date of admission: 10/20/21 15:07 Primary Care Provider: Taiwo Beckman Admitting Provider: Amaury Walsh Attending physician on admission: Amaury Walsh Condition: Stable
--- NOTE | 2021-10-21 11:25 | PM.IMPN ---
Progress Note: A&P Assessment and Plan (1) Pulmonary embolism: Code(s): I26.99 - Other pulmonary embolism without acute cor pulmonale Status: Acute Assessment and Plan: Patient will be discharged on Eliquis if prior often be obtained. Follow-up with primary care physician. Patient is aware she will need follow-up with a central supply worker for coagulopathy workup. (2) Anemia: Code(s): D64.9 - Anemia, unspecified Status: Acute Assessment and Plan: Secondary to iron-deficiency anemia. She will be started on iron. Patient reports heavy menses for this extended area. Time. History of iron-deficiency anemia in the past. Secondary to heavy menses, follow-up with OBGYN. (3) Hypertension: Code(s): I10 - Essential (primary) hypertension Status: Acute Assessment and Plan: Monitor, follow primary care physician (4) GERD (gastroesophageal reflux disease): Code(s): K21.9 - Gastro-esophageal reflux disease without esophagitis Status: Acute Assessment and Plan: Monitor. (5) Tobacco abuse: Code(s): Z72.0 - Tobacco use Status: Acute Assessment and Plan: Patient was educated about smoking cessation (6) Morbid obesity: Code(s): E66.01 - Morbid (severe) obesity due to excess calories Status: Acute Assessment and Plan: Patient was educated about weight loss Subjective Date/time seen: 10/21/21 11:25 Doing well Interval history: No complaints Exam Narrative: Morbidly obese LUNGS: normal respiratory effort ABDO: obese distended Lower extremities: no edema SKIN: nonjaundiced Objective Data Vital Signs Vital Signs: Vital Signs - 24 hr 10/20/21 12:00 10/20/21 12:12 10/20/21 13:25 Temperature 97.5 F L 98.0 F Pulse Rate 75 78 82 Respiratory Rate 18 16 Blood Pressure 121/63 139/84 Pulse Oximetry 100 100 10/20/21 14:00 10/20/21 16:00 10/20/21 19:44 Temperature 98.2 F Pulse Rate 78 75 Respiratory Rate 14 Blood Pressure 141/82 H Pulse Oximetry 100 100 10/20/21 20:00 10/20/21 22:00 10/21/21 00:00 Temperature 97.2 F L Pulse Rate 83 76 68 Respiratory Rate 18 Blood Pressure 132/87 Pulse Oximetry 99 10/21/21 04:00 10/21/21 06:00 10/21/21 08:00 Temperature 97.5 F L Pulse Rate 69 77 66 Respiratory Rate 18 Blood Pressure 149/82 H Pulse Oximetry 100 Intake/Output Intake/Output: Intake & Output 10/18/21 10/19/21 10/20/21 10/21/21 23:59 23:59 23:59 23:59 Intake Total 1395 1955 2425 595 Balance 1395 1955 2425 595 Meds/Results Medications: Active Medications Generic Name Dose Route Start Last Admin Trade Name Freq PRN Reason Stop Dose Admin Acetaminophen 325 mg 10/19/21 09:29 Acetaminophen 325 Mg Tablet PO Q4H PRN Mild Pain (1-3) or Fever Hydrocodone Bitart/Acetaminophen 1 tab 10/19/21 09:28 10/20/21 08:02 Hydrocodone/Acetaminophen (*Crx) 5-325 Mg Tablet PO 1 tab Q4H PRN Administration Pain Rated 4-6 Apixaban 5 mg 10/25/21 21:00 Apixaban 5 Mg Tablet PO 10/25/21 21:01 Q12HR SUSANA Apixaban 10 mg 10/18/21 21:00 10/21/21 08:20 Apixaban 5 Mg Tablet PO 10/25/21 09:01 10 mg Q12HR SUSANA Administration Ferrous Sulfate 324 mg 10/18/21 17:00 10/21/21 08:20 Ferrous Sulfate 324 Mg Tablet PO 324 mg TIDWM SUSANA Administration Iron Sucrose 100 mg/ Sodium 55 mls @ 220 mls/hr 10/19/21 09:00 10/21/21 08:35 Chloride IVPB Infused QAM SUSANA Infusion Multivitamins Therapeutic 1 tablet 10/19/21 09:00 10/21/21 08:20 Multivitamins Therapeutic Tab (*Bkc) PO 1 tablet QAM SUSANA Administration Ondansetron HCl 4 mg 10/19/21 09:29 10/21/21 05:07 Ondansetron Inj 4 Mg/2 Ml Vial IV PUSH 4 mg Q4H PRN Administration Nausea And Vomiting Pantoprazole Sodium 40 mg 10/19/21 09:00 10/21/21 08:20 Pantoprazole 40 Mg Tablet PO 40 mg QAM SUSANA Administration Perflutr
--- NOTE | 2021-10-21 14:01 | PC.NURSE ---
call placed to provider Brandon due to noting that a unit of blood was still noted on TAR. Hgb 8.5 this am. provider stated does not need the 2nd unit of blood in tar.
[2021-10-22 06:00] VITALS: BP 106/52; PULSE 71; RESP 18; TEMP 35.9; O2SAT 100
[2021-10-22] MEDS: FERROUS SULFATE 324 MG TABLET PO ×3 (08:26→18:38)
[2021-10-22] MEDS: APIXABAN 5 MG TABLET 10 MG PO ×2 (08:26→18:38)
[2021-10-22] MEDS: PANTOPRAZOLE 40 MG TABLET PO (08:26)
[2021-10-22] MEDS: IRON SUCROSE COMPLEX 100 MG in SODIUM CHLORIDE 0.9% IV 50 ML 220 MG IVPB (08:26)
[2021-10-22] MEDS: MULTIVITAMINS THERAPEUTIC TAB (*BKC) 1 TABLET PO (08:26)
--- NOTE | 2021-10-22 12:28 | PM.DS ---
DS: Admitting Diagnosis Discharge Date October 22, 2021 Admitting Diagnosis PE DS: Discharge Diagnosis Discharge Diagnosis (1) Pulmonary embolism: Code(s): I26.99 - Other pulmonary embolism without acute cor pulmonale Status: Acute Assessment and Plan: Patient will be discharged on Eliquis. Follow-up with primary care physician. Patient is aware she will need follow-up with a engineering supplies sales for coagulopathy workup. (2) Anemia: Code(s): D64.9 - Anemia, unspecified Status: Acute Assessment and Plan: Secondary to iron-deficiency anemia. She will be started on iron. Patient reports heavy menses for this extended area. Time. History of iron-deficiency anemia in the past. Secondary to heavy menses, follow-up with OBGYN. (3) Hypertension: Code(s): I10 - Essential (primary) hypertension Status: Acute Assessment and Plan: Monitor, follow primary care physician (4) GERD (gastroesophageal reflux disease): Code(s): K21.9 - Gastro-esophageal reflux disease without esophagitis Status: Acute Assessment and Plan: Monitor. (5) Tobacco abuse: Code(s): Z72.0 - Tobacco use Status: Acute Assessment and Plan: Patient was educated about smoking cessation (6) Morbid obesity: Code(s): E66.01 - Morbid (severe) obesity due to excess calories Status: Acute Assessment and Plan: Patient was educated about weight loss DS: Summary Hospital Course Hospital Course: C plan diagnosis Time Spent with Patient Time attestation: Total time spent providing and/or coordinating discharge services: Exam Narrative: Morbidly obese LUNGS: normal respiratory effort ABDO: obese distended Lower extremities: no edema SKIN: nonjaundiced Discharge Plan Discharge Attending physician on discharge: Raúl Taylor Discharging Clinician: Raúl Taylor Anticipated Discharge Date/Time: 10/21/21 10:49 Patient Disposition: Home, Self-Care Activity: no preference Diet: as tolerated Patient Instructions: Antibiotic Form, Apixaban (By mouth), Pulmonary Embolism (DC) Stand Alone Forms: General Discharge Information Follow-up/Referrals: Taiwo Beckman MD [Primary Care Provider] - Discharge Medications: New ferrous sulfate 325 mg (65 mg iron) Tablet 324 mg PO TIDWM 30 Days Qty: 90 RF: 0 Eliquis 5 mg Tablet 10 mg PO Q12HR 6 Days Qty: 24 RF: 0 Eliquis 5 mg Tablet 5 mg PO Q12HR 30 Days Qty: 60 RF: 0 Continued Adults Multivitamin 1 tablet PO DAILY RF: 0 Date of admission: 10/20/21 15:07 Primary Care Provider: Taiwo Beckman Admitting Provider: Amaury Walsh Attending physician on admission: Amaury Walsh Condition: Stable
[2021-10-22 14:00] VITALS: BP 144/75; PULSE 77; RESP 20; TEMP 36.4; O2SAT 100
== END 2021-10-22 18:45 | disposition home or self-care (01) | DRG 134 ==
LOC: ANHED 08:23 → ANH3MEDSUR 09:11
PROVIDERS: Emergency Medicine; Family Medicine; Admitting Provider Internal Medicine; Emergency Provider General Practice; PCP Family Medicine; Visit Provider Chiropractor
DX: I26.99 Other pulmonary embolism without acute cor pulmonale (principal); D50.8 Other iron deficiency anemias; K21.9 Gastro-esophageal reflux disease without esophagitis; I10 Essential (primary) hypertension; F17.210 Nicotine dependence, cigarettes, uncomplicated; E66.01 Morbid (severe) obesity due to excess calories; Z68.42 Body mass index [BMI] 45.0-49.9, adult; Z90.49 Acquired absence of other specified parts of digestive tract
CPT/HCPCS: 36415; 36430; 71045; 71275; 74177; 80048; 80053; 81025; 82274; 82728; 83540; 83550; 83690; 84443; 84484; 85025; 85027; 85055; 85380; 85610; 85730; 86850; 86900; 86901; 86920; 93005; 93306; 93970; 96361; 96365; 96366; 96372; 96374; 96375; 99285; A9270; G0378; G0379; J1650; J1756; J2270; J2405; J7030; J7050; P9016; Q9967

== ENCOUNTER 2021-11-10 16:17 | Outpatient (CLI) | payer OTHER, SELFPAY ==
[2021-11-10 16:33] LABS: Basophils Percent Auto 0.5 % (0.2-1.2); Eosinophils Absolute Auto 0.2 K/mm3 (0-0.3); Eosinophils Percent Auto 3.1 % (0-4.4); Hematocrit 35.1 % (37.0-47.0); Immature Granulocyte Absolute 0.01 K/mm3 (0.00-0.031); Immature Granulocyte Percent A 0.2 % (0-0.5); Immature Platelet Fraction Pct 9.3 % (0.9-11.2); Lymphocytes Absolute Auto 1.43 K/mm3 (0.9-3.2); Lymphocytes Percent Auto 25.9 % (18.3-44.2); Mean Corpuscular HGB Conc 28.5 g/dl (32-36); Mean Corpuscular Hemoglobin 19.5 pg (26-34); Mean Corpuscular Volume 68.6 fl (80-100); Monocytes Absolute Auto 0.3 K/mm3 (0.1-0.6); Monocytes Percent Auto 5.8 % (2.6-8.5); Neutrophils Absolute Auto 3.6 K/mm3 (1.3-6.7); Neutrophils Percent Auto 64.5 % (45.5-73.1); Platelet Count Result 282 k/mm3 (150-375); Red Blood Count 5.12 M/mm3 (4.2-5.4); White Blood Count 5.5 K/mm3 (4.5-10.0)
[2021-11-10 16:52] LABS: Hypochromasia 2+ (NORMAL); Ovalocytes 1+ (NORMAL); Platelet Estimate Adequate (Adequate)
[2021-11-10 17:00] LABS: Beta HCG Quantitative < 2.39 mIU/ML
[2021-11-14 13:55] LABS: Testosterone Free 1.1 pg/mL (0.1-6.4); Testosterone Total 14 ng/dL (2-45)
[2021-11-15 20:06] LABS: FSH 7.8 mIU/mL (***); Progesterone <0.2 ng/mL (***); Prolactin 7.2 ng/mL (***)
[2021-11-17 00:11] LABS: Estradiol, Ultrasensitive 68 pg/mL
== END 2021-11-10 16:18 | disposition home or self-care (01) ==
PROVIDERS: PCP Physician Assistant; Visit Provider Obstetrics & Gynecology
DX: E83.52 Hypercalcemia (principal); R13.10 Dysphagia, unspecified; N92.0 Excessive and frequent menstruation with regular cycle
CPT/HCPCS: 36415; 82670; 83001; 83498; 84144; 84146; 84402; 84403; 84702; 85025; 85055

== ENCOUNTER 2021-11-13 02:19 | Day surgery (SDC) | payer OTHER, SELFPAY ==
[2021-11-10 13:14] VITALS: BMI 47.5
--- NOTE | 2021-11-10 13:18 | PC.NURSE ---
Report to the Outpatient Waiting Room, entrance under the green pavilion located off [facility], at time 8am on 11/13/2021 for procedure at 10am - You and your visitor will be asked a series of questions to screen for COVID 19 for your protection. - Only one visitor is allowed at this time. - The patient visitor is requested to leave or wait in car when not with patient. - A mask is required within the hospital. Patients may have clear liquids (water, carbonated beverages, clear teas, apple juice) until 3 hours prior to surgery with a maximum of 20 ounces. - No food from midnight until time of surgery - Infants may have breast milk until 4 hours before surgery, infant formula 6 hours prior to surgery. - Children will be allowed to drink immediately following surgery. If applicable, please bring a bottle or sippy cup to assist with drinking. Juice, water, soda, and popsicles are readily available. For infants on formula, please bring formula the day of surgery. Pacifiers are allowed. Take the following medications with a SIP of water the morning of surgery: pain pill if needed Medications to discontinue per physician per Dr Jam Cohen and multi vitamins for 3 days Date to take last dose 11/10/2021 Please no make-up, nail ukrainian, hairspray, perfume, deodorant, or body powder the day of surgery. No jewelry (including any body piercings) or valuables the day of surgery, leave them at home. Please take a shower or bath the night before, or the morning of, surgery with an antibacterial soap. Wear comfortable, loose fitting clothing. Children are encouraged to wear pajamas. - Jewelry must be removed prior to entering the operating room. Rings and piercings that are not removed may be cut off. - The hospital will not accept responsibility for valuables. - Please leave all valuables, including medications, at home the day of surgery. If you are going home after surgery, a licensed rickshaw driver must drive you home. - NO public transportation without another adult. - We recommend that an adult stay with you for 24 hours following discharge. - We also recommend that you do not drive, make important decision, drink alcoholic beverages, or take any drugs that were not prescribed by your health care provider for at least 24 hours after your discharge time. For Pediatric surgeries, we recommend two adults accompany the child home (only one inside the building at this time). Follow any additional instructions given to you from your surgeon. If you or anyone in your household have experienced Covid symptoms in the past week, please notify your surgeon or the nurse liaison at the phone number below for possible testing. Telephone instructions given to patient Ritika and asked if any additional questions and then verbalized understanding. Patient advised to call surgeon office or pre surgery nurse liaison [phone] if any additional questions.
[2021-11-13] VITALS (8 sets, daily range): BP systolic 122–138; BP diastolic 66–92; PULSE 61–88; RESP 12–16; TEMP 35.9–37.1; O2SAT 100
[2021-11-13] MEDS: LACTATED RINGERS 1,000 ML 30 ML IV CONT (08:00)
[2021-11-13] MEDS: ACETAMINOPHEN 500 MG TABLET 1000 MG PO (08:18)
[2021-11-13 08:39] LABS: Hemoglobin 10.4 g/dL (12.0-15.0)
--- NOTE | 2021-11-13 08:53 | PM.IMHP ---
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 She has a long standing h/o AUB and anemia. She was previously on sprintec (after the of her second child; but only for 3-4 months). She was recently diagnosed w/ a PE and is now on Eliquis. She is taking iron TID. She was also given a unit of blood and multiple IV iron infusions during her admission. Her last hgb 11/10/21 was 10; normal thyroid panel. She has not scheduled her f/u w/ hematology yet. she reports her cycles are regular; has one every month. She has significant cramping and passes clots larger than gum balls. She reports her cycles last a full 7 days. She is sexually active rarely; not interested in future children, but her does not have a vasectomy. She reports this cycle is heavier since being on the blood thinner. No symptoms of anemia currently. On pelvic exam, she was found to have moderate bleeding with what appeared to be a delivering fibroid. Chief Complaint: AUB Review of Systems Review of Systems: All systems reviewed & are unremarkable except as noted in HPI and below (HPI) [facility] Past Medical History Medical History (Updated 11/12/21 @ 20:14 by Rosalba Polk MD) Anemia GERD (gastroesophageal reflux disease) Hernia Hypertension Morbid obesity Ovarian cyst Pulmonary embolism Tobacco abuse Surgical History Surgical History History of appendectomy History of removal of ovarian cyst Hx of cholecystectomy Family History Family History Grandparent Diabetes mellitus Alzheimer disease Cardiac abnormality Cerebrovascular accident Malignant neoplasm of prostate Father Hypertension Cerebrovascular accident Mother Ovarian cancer Family history of malignant neoplasm Hypertension Asthma Sibling Asthma Other Family history of allergic disorder Family history of cardiovascular disease Social History Social History (Updated 11/07/21 @ 08:04 by Yoli Mejia MA) Social History: 4 cigars/day. Has smoked off and on for about 3 years. She drinks 1 alcoholic drink per month. No drug use. She lives with her and 2 children. She is a full code. She nominates her to be the individual would make medical decisions for her if she is unable. Years smoked: 0.5 Smoking status: Current every day smoker Tobacco type: cigars Alcohol intake: never Substance use: never Substance use type: does not use Living arrangements: with family Gender identity (if verbalized by the patient): Female Spiritual care concerns: No Meds Home Medications and Allergies Allergies Allergy/AdvReac Type Severity Reaction Status Date / Time No Known Allergies Allergy Verified 11/10/21 12:58 Exam Const: General: cooperative, healthy appearing, comfortable and no acute distress Resp: Effort & Inspection: normal respiratory effort Cardio: Rate: regular rate GI: Inspection: normal to inspection GI Palp: No abdominal tenderness and Yes Soft to palpation : Other: deferred to OR Skin: General skin exam: normal color Neuro: General: patient oriented x3 Extrem: General: normal to inspection Psych: Appearance: grossly normal Affect: normal affect Attitude: cooperative Assessment and Plan Assessment and plan (1) Fibroid: Code(s): D21.9 - Benign neoplasm of connective and other soft tissue, unspecified Status: Acute (2) Menorrhagia: Qualifiers: Menorrhagia type: with regular cycle Qualified Code(s): N92.0 - Excessive and frequent menstruation with regular cycle Code(s): N92.0 - Excessive and frequent menstruation with regular cycle Status: Acute (3) Anemia: Qualifiers: Anemia type: iron deficiency Iron deficiency anemia type: chronic blood loss
--- NOTE | 2021-11-13 08:54 | WPDHPUPDATE1 ---
History and Physical Update Update Date/Time: 11/13/21 08:54 History and Physical has been reviewed, including an updated exam of the patient. There are NO changes in the patient's condition. Risks, benefits, and alternatives have been discussed and questions answered. Patient agrees to proceed with procedure.
--- NOTE | 2021-11-13 09:25 | WPDANESEPPF ---
Anes - Initial Pre Proc Eval Procedure: Operation Date: 11/13/21 10:00 Proposed Procedures p Hysteroscopy Dilation and Curettage, Myomectomy - Rosalba Polk MD Date/Time: 11/13/21 09:25 Surgeon: Rosalba Polk MD Pre Op Diagnosis: Menometrorrhagia Patient Data Age: 31 Gender: F Height: 1.7 m Weight: 137.7 kg Allergies Allergy/AdvReac Type Severity Reaction Status Date / Time No Known Allergies Allergy Verified 11/13/21 09:23 Home Medications Medication Instructions Recorded Confirmed Type Adult One Daily Multivitamin 1 tablet PO DAILY #0 10/18/21 11/13/21 History apixaban [Eliquis] 5 mg PO Q12HR 30 Days #60 tablet 10/21/21 11/13/21 Rx ferrous sulfate 324 mg PO TIDWM 30 Days #90 tablet 10/21/21 11/13/21 Rx hydrocodone-acetaminophen 5 mg PO PRN 11/10/21 11/13/21 History Laboratory Tests 11/13/21 08:28 Hgb 10.4 g/dL L g/dL (12.0-15.0) Hct 37.0 % % (37.0-47.0) Patient hx anesthesia problems: none Family hx anesthesia problems: none Results Review: All pre-operative results and documents have been reviewed as part of the pre-operative evaluation. [facility] Past Medical History Medical History (Updated 11/12/21 @ 20:14 by Rosalba Polk MD) Anemia GERD (gastroesophageal reflux disease) Hernia Hypertension Morbid obesity Ovarian cyst Pulmonary embolism Tobacco abuse Surgical History Surgical History History of appendectomy History of removal of ovarian cyst Hx of cholecystectomy Family History Family History Grandparent Diabetes mellitus Alzheimer disease Cardiac abnormality Cerebrovascular accident Malignant neoplasm of prostate Father Hypertension Cerebrovascular accident Mother Ovarian cancer Family history of malignant neoplasm Hypertension Asthma Sibling Asthma Other Family history of allergic disorder Family history of cardiovascular disease Social History Social History (Updated 11/07/21 @ 08:04 by Yoli Mejia MA) Social History: 4 cigars/day. Has smoked off and on for about 3 years. She drinks 1 alcoholic drink per month. No drug use. She lives with her and 2 children. She is a full code. She nominates her to be the individual would make medical decisions for her if she is unable. Years smoked: 0.5 Smoking status: Current every day smoker Tobacco type: cigars Alcohol intake: never Substance use: never Substance use type: does not use Living arrangements: with family Gender identity (if verbalized by the patient): Female Spiritual care concerns: No Anes - Eval Final PreProcedure Day of Procedure 11/13/21 09:25 Patient weight: morbidly obese Heart: regular rate and rhythm Lungs: clear to auscultation and normal air movement Airway: Mallampati scale class II Neurological: alert and oriented Last oral intake: >/= 8 hours ASA classification: III Emergent: no Anesthetic plan: proceed Anesthesia type and monitoring: general GIVS and LMA and standard monitoring Results Review: All pre-operative results and documents have been reviewed as part of the pre-operative evaluation. Informed Consent: The patient's anesthetic plan and its attendant risks and benefits were discussed with the patient/family/POA. Questions were solicited and answers provided to the satisfaction of the patient/family/POA.
[2021-11-13] MEDS: KETOROLAC 30 MG/ML VIAL (*BKC) IV PUSH (10:22)
--- NOTE | 2021-11-13 10:35 | W.PM.PROC2 ---
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 She has a long standing h/o AUB and anemia. She was recently diagnosed w/ a PE and is now on Eliquis. She is taking iron TID. She was also given a unit of blood and multiple IV iron infusions during her recent admission. Her last hgb 11/10/21 was 10; normal thyroid panel. She reports her cycles are regular; has one every month. She has significant cramping and passes clots larger than gum balls. She reports her cycles last a full 7 days. Findings Uterus 11cm; tubal ostia visualized bilaterally; profusely thickened endometrium on the anterior uterine wall; good hemostasis at end of case. Stage 3 uterine prolapse with the cervix descending to/slight past the hymen (no delivering polyp/fibroid noted). Fluid deficit: 10cc Description of Procedure Ritika was taken operating room where she was placed under general anesthesia without complications. She was then prepped and draped in usual sterile fashion in the dorsal lithotomy position with the legs in low Robinson stirrups. A time-out was performed and no preoperative antibiotics were indicated. A bivalve speculum was placed within the vagina were was noted that she has a hypertrophic/elongated cervix due to a stage III uterine prolapse. No delivering fibroid was identified. The anterior lip of the cervix was grasped with single-tooth tenaculum. The uterus was sounded. The cervix was then serially dilated to allow for the hysteroscope. The hysteroscope was inserted into the uterine cavity with the above findings. The curettage was then performed with a significant amount of tissue removed. Hysteroscope was once again advanced back into the uterus and a significant amount of tissue still remained on the anterior uterine wall. An additional curettage was then performed a good uterine cry. Good hemostasis was noted. All instruments were removed from the vagina. Sponge lap, lap, instrument, and needle counts were correct at the end of the procedure. Patient was awoken from anesthesia and taken to recovery with plans of same-day discharge home. Estimated Blood Loss 10 Drains No Packing No Pathology Yes Complications No immediate complications Condition Stable Disposition Same day [facility] Billing Surgery - Charge Forward: Surgery Billing
[2021-11-13] MEDS: fentaNYL CITRATE INJ (*CRX) 100 MCG/2 ML VIAL 25 MCG IV PUSH ×4 (10:46→10:57)
[2021-11-13] MEDS: oxyCODONE HCL (*CRX) 5 MG TAB IR PO (12:02)
== END 2021-11-13 12:48 | disposition home or self-care (01) ==
PROVIDERS: Anesthesiology; PCP Physician Assistant; Visit Provider Obstetrics & Gynecology
PROC: 0U5B8ZZ Destruction of Endometrium, Via Natural or Artificial Opening Endoscopic (ICD-10-PCS; CPT 58563; principal; 2021-11-13 10:00)
DX: N92.0 Excessive and frequent menstruation with regular cycle (principal); D50.0 Iron deficiency anemia secondary to blood loss (chronic); F17.210 Nicotine dependence, cigarettes, uncomplicated; K21.9 Gastro-esophageal reflux disease without esophagitis; I10 Essential (primary) hypertension; I26.99 Other pulmonary embolism without acute cor pulmonale; Z79.01 Long term (current) use of anticoagulants; E66.01 Morbid (severe) obesity due to excess calories; Z68.42 Body mass index [BMI] 45.0-49.9, adult; N81.3 Complete uterovaginal prolapse
CPT/HCPCS: 58558; 36415; 85014; 85018; 88305; A9270; J1100; J1885; J2250; J2405; J2704; J3010; J7030; J7120

== ENCOUNTER 2021-11-20 15:22 | Outpatient (CLI) | payer OTHER, SELFPAY ==
--- NOTE | ~2021-11-20 | US_ITS ---
US thyroid INDICATION: Dysphagia TECHNIQUE: Real-time sonographic images of the thyroid gland were obtained. COMPARISON: No prior studies for comparison. FINDINGS: The right thyroid lobe measures 4.7 x 2 x 1.8 cm. The left thyroid lobe measures 4.7 x 2 x 1.7 cm. There is normal echotexture and echogenicity throughout the thyroid gland. No discrete nodul es identified. Normal vascular flow is present. IMPRESSION: 1. Normal thyroid without discrete nodule or abnormal vascularity. Reviewed, dictated and finalized at location A.
--- NOTE | ~2021-11-20 | US_ITS ---
EXAMINATION: US pelvic complete w TV DATE: 11/20/2021 16:35 INDICATION: Excessive and frequent menstruation, recent ablation TECHNIQUE: Multiple transabdominal and endovaginal sonographic images of the pelvis were obtained. COMPARISON: CT, 10/18/2021 FINDINGS: The uterus measures 12.4 x 7.0 x 6.3 cm. The endometrial complex is indistinct and appears to be thickened, new since the recent comparison CT. The right ovary measures 7.0 x 6.9 x 3.9 cm. The re are two hypoechoic lesions of the right ovary with some solid component and fine linear internal e choes which measure 3.0 cm and 2.8 cm. The left ovary measures 3.5 x 1.8 x 1.0 cm. There is normal va scular flow in the ovaries. There is no free fluid in the pelvis. IMPRESSION: 1. Heterogeneous and thickened endometrium, likely due to recent ablation with possible hematoma in t he endometrial canal. 2. Right adnexal cystic lesions within internal echoes, likely hemorrhagic cysts. Reviewed, dictated and finalized at location A. IMPRESSION: 1. Heterogeneous and thickened endometrium, likely due to recent ablation with possible hematoma in the endometrial canal. 2. Right adnexal cystic lesions within internal echoes, likely hemorrhagic cyst s.
== END 2021-11-20 15:23 | disposition home or self-care (01) ==
PROVIDERS: PCP Physician Assistant; Referring Provider Family Medicine; Visit Provider Obstetrics & Gynecology
DX: R13.10 Dysphagia, unspecified (principal)
CPT/HCPCS: 76536; 76830; 76856

== ENCOUNTER 2021-12-19 19:29 | Emergency (ER) | payer OTHER, SELFPAY ==
--- NOTE | ~2021-12-19 | CT_ITS ---
EXAMINATION: CT brain wo con DATE: 12/19/2021 20:40 INDICATION: headache to entire head since 7AM today, nausea, on new meds . TECHNIQUE: Computed tomography (CT) of the head was performed X intravenous contrast. The mA was adju sted according to patient size. Iterative reconstruction technique was employed. The dose-length prod uct was 605.33 mGy-cm. COMPARISON: None FINDINGS: No acute intracranial hemorrhage or extra-axial fluid collection. No hydrocephalus, mass, or herniation. No acute ischemic infarct. Unremarkable dural venous sinus attenuation. No acute osseous abnormality. The aerated spaces are clear. IMPRESSION: No acute intracranial process. Reviewed, dictated and finalized at location [facility].
[2021-12-19 19:32] VITALS: BP 140/90; PULSE 70; RESP 18; TEMP 36.2; O2SAT 100
[2021-12-19] MEDS: METOCLOPRAMIDE HCL INJ 10 MG/2 ML VIAL IM (19:58)
[2021-12-19] MEDS: DEXAMETHASONE 2 MG TABLET 10 MG PO (20:07)
[2021-12-19] MEDS: diphenhydrAMINE HCl CAP 25 MG CAPSULE 50 MG PO (20:08)
--- NOTE | 2021-12-19 20:14 | ED.HA ---
HPI - Headache General Chief Complaint: Headache Stated Complaint: headache, nausea Time Seen by Provider: 12/19/21 19:45 History of Present Illness HPI Narrative: 31-year-old female presenting with a headache since this morning, she states that she does have migraines and last time she had a headache like this was about a month ago, she had tried to use some Tylenol at home and states this usually helps but still having a headache today. States it feels like going from the front to the back, is worse with bright light, consistent with her usual headaches, no focal numbness or weakness, no recent head trauma. She is currently on a blood thinner. Related Data Home Medications Medication Instructions Recorded Confirmed bupropion HCl 150 mg 24 hr tablet, tablet PO 12/19/21 extended release Allergies Allergy/AdvReac Type Severity Reaction Status Date / Time No Known Allergies Allergy Verified 12/19/21 19:36 Review of Systems Review of Systems: CONST: No fever. HEENT: No head trauma C/V: No chest pain RESP: No cough GI: Nausea : No dysuria. M/S: No joint pain. SKIN: No rash. NEURO: [Headache without focal numbness or weakness] PSYCH: [No depression] [facility] Past Medical History Medical History Anemia GERD (gastroesophageal reflux disease) Hernia Hypertension Morbid obesity Ovarian cyst Pulmonary embolism Tobacco abuse Surgical History Surgical History H/O gynecological procedure Hysteroscopy with dilation and curettage History of appendectomy History of removal of ovarian cyst Hx of cholecystectomy Family History Family History Grandparent Diabetes mellitus Alzheimer disease Cardiac abnormality Cerebrovascular accident Malignant neoplasm of prostate Father Hypertension Cerebrovascular accident Mother Ovarian cancer Family history of malignant neoplasm Hypertension Asthma Sibling Asthma Other Family history of allergic disorder Family history of cardiovascular disease Social History Social History Social History: 4 cigars/day. Has smoked off and on for about 3 years. She drinks 1 alcoholic drink per month. No drug use. She lives with her and 2 children. She is a full code. She nominates her to be the individual would make medical decisions for her if she is unable. Years smoked: 0.5 Smoking status: Current every day smoker Tobacco type: cigars Alcohol intake: never Substance use: never Substance use type: does not use Gender identity (if verbalized by the patient): Female Spiritual care concerns: No Exam Narrative: EXAMINATION OF ORGAN SYSTEMS/BODY AREAS: Constitutional: Vital signs per nursing GENERAL: Appears uncomfortable in the bed HEAD: Normal with no signs of head trauma. EYES: EOMI, conjunctiva normal ENT: Hearing grossly intact LUNGS: Nonlabored breathing. HEART: [Regular rate and rhythm] ABD: [Soft], [nontender to palpation] EXT: Normal range of motion SKIN: [No rashes or lesions.] NEURO: [Alert and oriented x 3. No gross focal sensory or strength deficits.] PSYCH: Normal affect Course Vital Signs Vital signs: Vital Signs Temperature 97.2 F L 12/19/21 19:32 Pulse Rate 70 12/19/21 19:32 Respiratory Rate 18 12/19/21 19:32 Blood Pressure 140/90 12/19/21 19:32 Pulse Oximetry 100 12/19/21 19:32 Oxygen Delivery Room Air 12/19/21 19:32 Temperature 97.2 F L 12/19/21 19:32 Pulse Rate 70 12/19/21 19:32 Respiratory Rate 18 12/19/21 19:32 Blood Pressure 140/90 12/19/21 19:32 Pulse Oximetry 100 12/19/21 19:32 Oxygen Delivery Room Air 12/19/21 19:32 MDM - Headache MDM Narrative Medical decision making narrative: 31-year-old female presenting with a headache that is wo
[2021-12-19 21:30] VITALS: BP 136/87; PULSE 86; RESP 18; O2SAT 98
== END 2021-12-19 21:31 | disposition home or self-care (01) ==
PROVIDERS: Emergency Provider Emergency Medicine; PCP Physician Assistant
DX: R51.9 Headache, unspecified (principal); K21.9 Gastro-esophageal reflux disease without esophagitis; I10 Essential (primary) hypertension; Z86.711 Personal history of pulmonary embolism; E66.01 Morbid (severe) obesity due to excess calories; Z68.42 Body mass index [BMI] 45.0-49.9, adult; F17.290 Nicotine dependence, other tobacco product, uncomplicated; Z86.2 Personal history of diseases of the blood and blood-forming organs and certain disorders involving the immune mechanism
CPT/HCPCS: 70450; 96372; 99284; A9270; J2765; J8540

== ENCOUNTER 2021-12-26 10:45 | Outpatient (CLI) | payer OTHER, SELFPAY ==
[2021-12-26 11:31] LABS: Basophils Percent Auto 0.5 % (0.2-1.2); Eosinophils Absolute Auto 0.1 K/mm3 (0-0.3); Eosinophils Percent Auto 2.1 % (0-4.4); Hematocrit 35.6 % (37.0-47.0); Hemoglobin 10.5 g/dL (12.0-15.0); Immature Granulocyte Absolute 0.01 K/mm3 (0.00-0.031); Immature Granulocyte Percent A 0.2 % (0-0.5); Lymphocytes Absolute Auto 1.36 K/mm3 (0.9-3.2); Lymphocytes Percent Auto 31.2 % (18.3-44.2); Mean Corpuscular HGB Conc 29.5 g/dl (32-36); Mean Corpuscular Volume 71.2 fl (80-100); Monocytes Absolute Auto 0.2 K/mm3 (0.1-0.6); Monocytes Percent Auto 5.3 % (2.6-8.5); Neutrophils Absolute Auto 2.7 K/mm3 (1.3-6.7); Neutrophils Percent Auto 60.7 % (45.5-73.1); Platelet Count Result 248 k/mm3 (150-375); Red Cell Distribution Width 26.5 % (11.5-14.5); White Blood Count 4.4 K/mm3 (4.5-10.0)
[2021-12-26 11:50] LABS: Immunoglobulin A 101 mg/dL (70-400); Immunoglobulin M 355 mg/dL (40-230)
[2021-12-26 12:34] LABS: Erythrocyte Sedimentation Rate 20 mm/hr (0-20)
[2021-12-29 14:06] LABS: Angiotensin Converting Enzyme 17 U/L (9-67)
[2021-12-29 20:07] LABS: Complement Total CH50 >60 U/mL (31-60)
[2021-12-30 10:35] LABS: S. pneumonia Serotype 1 (1) <0.3; S. pneumonia Serotype 12 (12F) <0.3; S. pneumonia Serotype 14 (14) <0.3; S. pneumonia Serotype 17 (17F) 0.4; S. pneumonia Serotype 18C (56) <0.3; S. pneumonia Serotype 19 (19F) 1.1; S. pneumonia Serotype 2 (2) <0.3; S. pneumonia Serotype 20 (20) 0.3; S. pneumonia Serotype 22 (22F) <0.3; S. pneumonia Serotype 23 (23F) <0.3; S. pneumonia Serotype 3 (3) 1.1; S. pneumonia Serotype 34 (10A) 0.6; S. pneumonia Serotype 4 (4) <0.3; S. pneumonia Serotype 43 (11A) 0.3; S. pneumonia Serotype 5 (5) 1.7; S. pneumonia Serotype 51 (7F) 2.8; S. pneumonia Serotype 54 (15B) <0.3; S. pneumonia Serotype 57 (19A) <0.3; S. pneumonia Serotype 68 (9V) <0.3; S. pneumonia Serotype 6B (26) 1.7; S. pneumonia Serotype 70 (33F) 0.6; S. pneumonia Serotype 8 (8) <0.3; S. pneumonia Serotype 9 (9N) <0.3
[2021-12-31 07:17] LABS: Immunoglobulin G, Serum 1075 mg/dL (600-1640); Immunoglobulin G1 695 mg/dL (382-929); Immunoglobulin G2 264 mg/dL (241-700); Immunoglobulin G3 76 mg/dL (22-178); Immunoglobulin G4 12.6 mg/dL (4.0-86.0)
[2022-01-02 23:02] LABS: ANCA Screen Negative (Negative)
[2022-01-05 11:31] LABS: Immunoglobulin E 11 kU/L (<=114)
== END 2021-12-26 10:46 | disposition home or self-care (01) ==
LOC: ANHLAB 10:50
PROVIDERS: PCP Physician Assistant; Visit Provider Physician Assistant
DX: J45.909 Unspecified asthma, uncomplicated (principal); J32.9 Chronic sinusitis, unspecified
CPT/HCPCS: 36415; 82164; 82784; 82785; 82787; 85025; 85055; 85652; 86003; 86036; 86161; 86162; 86317; 86648; 86774

== ENCOUNTER 2022-03-27 08:42 | Outpatient (CLI) | payer OTHER, SELFPAY ==
[2022-03-27 10:35] LABS: Glucose 1 Hour PP 50gm Dose 127 mg/dL
[2022-03-27 11:14] LABS: Hepatitis B Surface Antigen Negative (Negative); Rubella IgG Antibody 67.9 IU/ML
[2022-03-27 11:15] LABS: HIV 1/2 Ab P24 Ag Result Negative (Negative)
[2022-03-27 15:00] LABS: Rapid Plasma Reagin Non-Reactive (NonReactive)
[2022-03-30 11:48] LABS: CMV IgG Antibody <0.60 U/mL (<0.60)
[2022-04-05 16:04] LABS: SMA Results Received Yes
== END 2022-03-27 08:43 | disposition home or self-care (01) ==
PROVIDERS: PCP Physician Assistant; Visit Provider Obstetrics & Gynecology
DX: N94.89 Other specified conditions associated with female genital organs and menstrual cycle (principal)
CPT/HCPCS: 36415; 81329; 82947; 84702; 86592; 86644; 86703; 86747; 86762; 86787; 86850; 86900; 86901; 87340; G0432

== ENCOUNTER 2022-04-08 08:14 | Emergency (ER) | payer OTHER, SELFPAY ==
[2022-04-08 08:25] VITALS: BP 121/67; PULSE 74; RESP 16; TEMP 36.1; O2SAT 99
[2022-04-08 08:29] VITALS: BP 121/67; PULSE 74; RESP 16; TEMP 36.1; O2SAT 99
--- NOTE | 2022-04-08 08:36 | ED.FEMALEGU ---
HPI - Female Genitourinary General Chief complaint: Urogenital-Female Stated complaint: yeast infection Time Seen by Provider: 04/08/22 08:36 Source: patient, RN notes reviewed and old records reviewed Mode of arrival: ambulatory Limitations: no limitations History of Present Illness HPI Narrative: 31-year-old female who is presents to the [facility] with complaints of having a yeast infection. LMP February 02, patient reports she is 10 to 11 weeks . Has seen her medical or surgical instrument maker provider Reports her last she is always had issues with yeast infections. States that she will follow-up with her TECHNICIAN SUPPORT ENGINEER this week. Related Data Allergies Allergy/AdvReac Type Severity Reaction Status Date / Time No Known Allergies Allergy Verified 04/08/22 08:18 Review of Systems Review of Systems: All systems reviewed & are unremarkable except as noted in HPI and below Constitutional: Constitutional: Reports no additional constitutional complaints, Denies chills and Denies fever(s) Eyes: Eyes: Reports no additional eye complaints ENT: Reports system reviewed and no additional complaints, except as documented Cardiovascular: Cardiovascular: Reports no additional cardiovascular complaints Respiratory: Respiratory: Reports no additional respiratory complaints Gastrointestinal: Gastrointestinal: Reports no additional gastrointestinal complaints Genitourinary: Genitourinary: Reports as per HPI and Denies vaginal discharge Musculoskeletal: Musculoskeletal: Reports no additional musculoskeletal complaints Integumentary/Breasts: Skin/Breast: Reports system reviewed and no additional complaints, except as docu Neurologic: Reports system reviewed and no additional complaints, except as documented Psychiatric: Psychiatric: Reports no additional psychiatric complaints Allergic/Immunologic: Allergic/Immunologic: Reports no additional allergic/immunologic complaints PMF Past Medical History Medical History Anemia GERD (gastroesophageal reflux disease) Hernia Hypertension Morbid obesity Ovarian cyst Pulmonary embolism Tobacco abuse Surgical History Surgical History H/O gynecological procedure Hysteroscopy with dilation and curettage History of appendectomy History of removal of ovarian cyst Hx of cholecystectomy Family History Family History Grandparent Diabetes mellitus Alzheimer disease Cardiac abnormality Cerebrovascular accident Malignant neoplasm of prostate Father Hypertension Cerebrovascular accident Mother Ovarian cancer Family history of malignant neoplasm Hypertension Asthma Sibling Asthma Other Family history of allergic disorder Family history of cardiovascular disease Social History Social History Social History: 4 cigars/day. Has smoked off and on for about 3 years. She drinks 1 alcoholic drink per month. No drug use. She lives with her and 2 children. She is a full code. She nominates her to be the individual would make medical decisions for her if she is unable. Years smoked: 0.5 Smoking status: Current every day smoker Tobacco type: cigars Alcohol intake: never Substance use: never Substance use type: does not use Gender identity (if verbalized by the patient): Female Spiritual care concerns: No Comments At the time of my signature, I reviewed and agree with the nursing past medical, surgical, social, and family history. There is no relevant family history pertinent to the patient complaint. Exam Const: General: healthy appearing, no acute distress and alert Nutritional Appearance: well nourished and obese Orientation/consciousness: patient oriented x3 Limitations: no limitations HENMT: Head: normal to inspection Ea
== END 2022-04-08 08:48 | disposition home or self-care (01) ==
PROVIDERS: Emergency Provider Nurse Practitioner
DX: O98.811 Other maternal infectious and parasitic diseases complicating pregnancy, first trimester (principal); B37.3 Candidiasis of vulva and vagina; Z3A.11 11 weeks gestation of pregnancy; O99.211 Obesity complicating pregnancy, first trimester; E66.01 Morbid (severe) obesity due to excess calories; Z86.711 Personal history of pulmonary embolism; O99.331 Smoking (tobacco) complicating pregnancy, first trimester; F17.290 Nicotine dependence, other tobacco product, uncomplicated; O99.611 Diseases of the digestive system complicating pregnancy, first trimester; K21.9 Gastro-esophageal reflux disease without esophagitis
CPT/HCPCS: 99213; G0463

== ENCOUNTER 2022-05-09 14:12 | Emergency (ER) | payer OTHER, SELFPAY ==
[2022-05-09] VITALS (9 sets, daily range): BP systolic 99–121; BP diastolic 45–69; PULSE 67–80; RESP 12–20; TEMP 36.4; O2SAT 98–100
--- NOTE | ~2022-05-09 | US_ITS ---
US OB follow up DATE: 05/09/2022 17:08 INDICATION: 15 week gestation with vaginal bleeding; rule out ectopic TECHNIQUE: Real-time imaging and Doppler analysis COMPARISON: 11/20/2021 pelvic ultrasound examination FINDINGS: Live lr intrauterine gestation, fetus in longitudinal lie, vertex presentation with heart rate of 144 bpm. Posterior placenta. Subjectively normal amount of amniotic fluid. Biparietal diameter 3.25 cm; 16 weeks 1 day Head circumference 12.17 cm; 16 weeks 1 day Abdominal circumference 10.09 cm; 16 weeks 1 day Femur 1.99 cm; 15 weeks 6 days Composite age by Hadlock formula is 16 weeks 1 day +/- 1 week 1 day with CECILIA of 10/23/2022 compared to 10/27/2022 by LMP. HC/AC 1.21, within normal range of 1.06-1.33 Femur length/head circumference 16.33, within normal range of 13.49-16.66 IMPRESSION: Live lr intrauterine gestation in Vertex presentation Estimated gestational age of 16 weeks 1 day +/- 1 week 1 day; CECILIA 10/23/2022 Reviewed, dictated and finalized at Location [facility]. Reviewed, dictated and finalized at location [facility].
[2022-05-09 15:43] LABS: Basophils Percent Auto 0.2 % (0.2-1.2); Eosinophils Percent Auto 0.8 % (0-4.4); Hematocrit 31.9 % (37.0-47.0); Hemoglobin 9.6 g/dL (12.0-15.0); Immature Granulocyte Absolute 0.01 K/mm3 (0.00-0.031); Immature Granulocyte Percent A 0.2 % (0-0.5); Immature Platelet Fraction Pct 13.4 % (0.9-11.2); Lymphocytes Absolute Auto 1.26 K/mm3 (0.9-3.2); Lymphocytes Percent Auto 24.2 % (18.3-44.2); Mean Corpuscular HGB Conc 30.1 g/dl (32-36); Mean Corpuscular Hemoglobin 19.8 pg (26-34); Mean Corpuscular Volume 65.6 fl (80-100); Monocytes Absolute Auto 0.3 K/mm3 (0.1-0.6); Monocytes Percent Auto 5.6 % (2.6-8.5); Neutrophils Absolute Auto 3.6 K/mm3 (1.3-6.7); Platelet Count Result 244 k/mm3 (150-375); Red Blood Count 4.86 M/mm3 (4.2-5.4); Red Cell Distribution Width 26.6 % (11.5-14.5); White Blood Count 5.2 K/mm3 (4.5-10.0)
[2022-05-09 16:03] LABS: Add Urine Microscopic? YES; Appearance Urine Cloudy (Clear); Bacteria Urine Trace /hpf; Bilirubin Urine Negative (Negative); Blood Urine 2+ (Negative); Color Urine Yellow (Yellow); Glucose Urine UA Negative (Negative); Ketones Urine 2+ mg/dL (Negative); Leukocyte Esterase Ur 2+ LEU/UL (Negative); Mucus Urine Moderate /lpf; Nitrate Urine Negative (Negative); Protein Urine Negative (Negative); Specific Grav Ur 1.025 (1.001-1.035); Squamous Epithelial Cell Urine Many /hpf (Few); Urobilinogen Urine Negative mg/dL (<2.0)
[2022-05-09 16:18] LABS: Anisocytosis 3+ (NORMAL); Hypochromasia 1+ (NORMAL); Platelet Estimate Adequate (Adequate); Schistocytes None Seen (NORMAL)
--- NOTE | 2022-05-09 16:25 | ED.PREGNANCY ---
HPI - General Chief complaint: Vaginal Bleeding Stated complaint: 14 weeks preg, vag bleed Time Seen by Provider: 05/09/22 16:24 Source: patient and RN notes reviewed Mode of arrival: ambulatory Limitations: no limitations History of Present Illness HPI Narrative: 32 years old -[place] female went to the bathroom to urinate, wiped, light blood on the wipes, subsequently started having cramps lower abdomen and lower back. Currently feeling much better. Patient is 3 para 2 0 currently on Lovenox for pulmonary embolism which was diagnosed October 2021, was on Eliquis and switched to Lovenox when she found that she is . Patient denying any chest pain or shortness of breath. Related Data Allergies Allergy/AdvReac Type Severity Reaction Status Date / Time No Known Allergies Allergy Verified 05/09/22 15:05 Review of Systems Review of Systems: All systems reviewed & are unremarkable except as noted in HPI and below PMFSH Past Medical History Medical History Anemia GERD (gastroesophageal reflux disease) Hernia Hypertension Morbid obesity Ovarian cyst Pulmonary embolism Tobacco abuse Surgical History Surgical History H/O gynecological procedure Hysteroscopy with dilation and curettage History of appendectomy History of removal of ovarian cyst Hx of cholecystectomy Family History Family History Grandparent Diabetes mellitus Alzheimer disease Cardiac abnormality Cerebrovascular accident Malignant neoplasm of prostate Father Hypertension Cerebrovascular accident Mother Ovarian cancer Family history of malignant neoplasm Hypertension Asthma Sibling Asthma Other Family history of allergic disorder Family history of cardiovascular disease Social History Social History Social History: 4 cigars/day. Has smoked off and on for about 3 years. She drinks 1 alcoholic drink per month. No drug use. She lives with her and 2 children. She is a full code. She nominates her to be the individual would make medical decisions for her if she is unable. Years smoked: 0.5 Smoking status: Current every day smoker Tobacco type: cigars Alcohol intake: never Substance use: never Substance use type: does not use Gender identity (if verbalized by the patient): Female Spiritual care concerns: No Exam Narrative: General appearance: Well-developed, well-nourished Skin: Normal color Chest and respiratory: Airway patent, no respiratory distress, no accessory muscle use Heart: Regular rate/rhythm Abdomen: Soft, nontender, no organomegaly, quiet bowel sounds Vascular: Normal peripheral pulses, normal capillary refill. Neurologic: Alert and oriented ?3, ENGRAVER TIRE MOLD is normal as tested, no gross motor deficit : External Female Exam: normal external appearance Speculum Exam - Vagina: normal appearance of the vagina Speculum Exam - Cervix: normal appearance of the cervix and Cervical os closed Bimanual Exam- Adnexa, other: No adnexal tenderness Other: No vaginal blood whatsoever, vaginal pouch is clean without any bleeding or discharge Course Vital Signs Vital signs: Vital Signs Temperature 36.4 C L 05/09/22 15:00 Pulse Rate 78 05/09/22 15:00 Respiratory Rate 15 05/09/22 15:00 Blood Pressure 99/55 L 05/09/22 15:00 Pulse Oximetry 98 05/09/22 15:00 Oxygen Delivery Room Air 05/09/22 15:00 Temperature 36.4 C L 05/09/22 15:00 P
== END 2022-05-09 18:14 | disposition home or self-care (01) ==
PROVIDERS: Emergency Provider Emergency Medicine; PCP Obstetrics & Gynecology
DX: O46.92 Antepartum hemorrhage, unspecified, second trimester (principal); Z3A.14 14 weeks gestation of pregnancy
CPT/HCPCS: 36415; 76816; 81001; 84702; 85025; 85055; 85461; 99284

== ENCOUNTER 2022-08-09 14:17 | Outpatient (CLI) | payer OTHER, SELFPAY ==
[2022-08-09 15:51] LABS: Basophils Percent Auto 0.2 % (0.2-1.2); Eosinophils Absolute Auto 0.1 K/mm3 (0-0.3); Eosinophils Percent Auto 1.2 % (0-4.4); Hematocrit 33.3 % (37.0-47.0); Hemoglobin 10.6 g/dL (12.0-15.0); Immature Granulocyte Absolute 0.03 K/mm3 (0.00-0.031); Immature Granulocyte Percent A 0.6 % (0-0.5); Immature Platelet Fraction Pct 11.9 % (0.9-11.2); Lymphocytes Absolute Auto 0.89 K/mm3 (0.9-3.2); Lymphocytes Percent Auto 17.1 % (18.3-44.2); Mean Corpuscular HGB Conc 31.8 g/dl (32-36); Mean Corpuscular Hemoglobin 24.4 pg (26-34); Mean Corpuscular Volume 76.6 fl (80-100); Monocytes Absolute Auto 0.3 K/mm3 (0.1-0.6); Monocytes Percent Auto 5.2 % (2.6-8.5); Neutrophils Absolute Auto 3.9 K/mm3 (1.3-6.7); Neutrophils Percent Auto 75.7 % (45.5-73.1); Platelet Count Result 201 k/mm3 (150-375); Red Blood Count 4.35 M/mm3 (4.2-5.4); Red Cell Distribution Width 18.5 % (11.5-14.5); White Blood Count 5.2 K/mm3 (4.5-10.0)
[2022-08-09 16:01] LABS: Glucose 1 Hour PP 50gm Dose 111 mg/dL
[2022-08-09 16:40] LABS: HIV 1/2 Ab P24 Ag Result Negative (Negative)
== END 2022-08-09 14:18 | disposition home or self-care (01) ==
LOC: ANHLAB 14:19
PROVIDERS: PCP Obstetrics & Gynecology; Visit Provider Obstetrics & Gynecology
DX: Z34.90 Encounter for supervision of normal pregnancy, unspecified, unspecified trimester (principal)
CPT/HCPCS: 36415; 82947; 85025; 85055; 86703; G0432

== ENCOUNTER 2022-10-19 16:44 | Inpatient (IN) | payer OTHER, SELFPAY ==
[2022-10-19] VITALS (13 sets, daily range): BP systolic 109–128; BP diastolic 40–72; PULSE 65–82; RESP 16–17; TEMP 36.6–36.8; BMI 45.6
--- NOTE | 2022-10-19 18:07 | LDADM ---
This patient, Ritika Zamora, was admitted to Labor/Delivery/Recovery 106 on 10/19/22 at 16:44. Plans for labor, pain management and were discussed with patient. Patient/family oriented to hospital policies and general routines including ID bracelet, bed and alarms, visiting hours, pain management, procedures, bathroom and other care routines, personal items, smoking policy, room service/diet and guest tray routines, security routines, and visiting hours. Patient/Family are encouraged to report perceived risks to care and to ask questions if they do not understand what they are told or what they should do. See OBIX for further documentation.
[2022-10-19] MEDS: LACTATED RINGERS 1,000 ML 125 ML IV CONT (19:07)
[2022-10-19 19:09] LABS: Basophils Percent Auto 0.2 % (0.2-1.2); Eosinophils Percent Auto 0.3 % (0-4.4); Hemoglobin 11.5 g/dL (12.0-15.0); Immature Granulocyte Absolute 0.01 K/mm3 (0.00-0.031); Immature Granulocyte Percent A 0.2 % (0-0.5); Lymphocytes Absolute Auto 0.85 K/mm3 (0.9-3.2); Lymphocytes Percent Auto 14.3 % (18.3-44.2); Mean Corpuscular HGB Conc 31.9 g/dl (32-36); Mean Corpuscular Hemoglobin 24.9 pg (26-34); Mean Corpuscular Volume 78.1 fl (80-100); Mean Platelet Volume 12.1 fl (7.4-10.4); Monocytes Absolute Auto 0.3 K/mm3 (0.1-0.6); Monocytes Percent Auto 5.2 % (2.6-8.5); Neutrophils Absolute Auto 4.8 K/mm3 (1.3-6.7); Neutrophils Percent Auto 79.8 % (45.5-73.1); Platelet Count Result 164 k/mm3 (150-375); Red Blood Count 4.61 M/mm3 (4.2-5.4); Red Cell Distribution Width 15.3 % (11.5-14.5)
[2022-10-19] MEDS: DINOPROSTONE 10 MG VAG INSERT VAGINAL (19:34)
--- NOTE | 2022-10-19 20:46 | WPDHPUPDATE1 ---
History and Physical Update Update Date/Time: 10/19/22 20:46 32 yo at 39w2d who presents for IOL. History and Physical has been reviewed, including an updated exam of the patient. There are NO changes in the patient's condition. Risks, benefits, and alternatives have been discussed and questions answered. Patient agrees to proceed with procedure. A/P: admit to L&D routine admission orders Rh+ GBS neg plan for cervidil IOL pt has h/o DVT. has been compliant with Heparin. Plan to restart heparin 4-6 hrs s/p continuos EFM
--- NOTE | 2022-10-19 22:51 | WPDANESEPPF ---
Anes - Initial Pre Proc Eval Procedure: Labor Epidural Date/Time: 10/19/22 22:51 Surgeon: Vimal Pugh MD Pre Op Diagnosis: Labor Pain Pre Op Diagnosis: Induction of Labor Patient Data Age: 32 Gender: F Height: 1.7 m Weight: 132 kg Last Vital Signs Temp 36.6 C 10/19/22 18:30 Pulse 69 10/19/22 21:16 Resp 17 10/19/22 18:30 BP 122/67 10/19/22 21:16 Allergies Allergy/AdvReac Type Severity Reaction Status Date / Time No Known Allergies Allergy Verified 10/19/22 08:54 Home Medications Medication Instructions Recorded Confirmed Type aspirin 81 mg tablet,delayed 81 mg PO DAILY 08/20/22 10/19/22 History release (Adult Low Dose Aspirin) ondansetron 4 mg disintegrating 4 mg PO Q6H PRN nausea and 09/14/22 10/19/22 Rx tablet vomiting #30 tabs famotidine 20 mg tablet 20 mg PO DAILY 09/25/22 10/19/22 History heparin (porcine) 10,000 unit/mL 10,000 unit subcut DAILY 10/09/22 10/19/22 History injection solution Laboratory Tests 10/19/22 10/19/22 10/19/22 17:37 17:37 17:37 WBC 6.0 K/mm3 K/mm3 (4.5-10.0) RBC 4.61 M/mm3 M/mm3 (4.2-5.4) Hgb 11.5 g/dL L g/dL (12.0-15.0) Hct 36.0 % L % (37.0-47.0) MCV 78.1 fl L fl (80-100) MCH 24.9 pg L pg (26-34) MCHC 31.9 g/dl L g/dl (32-36) RDW 15.3 % H % (11.5-14.5) Plt Count 164 k/mm3 k/mm3 (150-375) MPV 12.1 fl H fl (7.4-10.4) Immature Gran % (Auto) 0.2 % % (0-0.5) Neut % (Auto) 79.8 % H % (45.5-73.1) Lymph % (Auto) 14.3 % L % (18.3-44.2) Tama % (Auto) 5.2 % % (2.6-8.5) Eos % (Auto) 0.3 % % (0-4.4) Baso % (Auto) 0.2 % % (0.2-1.2) Lymph # (Auto) 0.85 K/mm3 L K/mm3 (0.9-3.2) Tama # (Auto) 0.3 K/mm3 K/mm3 (0.1-0.6) Eos # (Auto) 0.0 K/mm3 K/mm3 (0-0.3) Baso # (Auto) 0.0 K/mm3 K/mm3 (0.0-0.1) Abs Immat Gran (auto) 0.01 K/mm3 K/mm3 (0.00-0.031) Absolute Neuts (auto) 4.8 K/mm3 K/mm3 (1.3-6.7) Absolute Nucleated RBC 0.0 K/mm3 K/mm3 (0.0-0.012) Nucleated RBC % 0.0 % % (0.0-0.2) RPR Pending Blood Type O Positive Antibody Screen Negative Patient hx anesthesia problems: none Family hx anesthesia problems: none Results Review: All pre-operative results and documents have been reviewed as part of the pre-operative evaluation. [facility] Past Medical History Medical History Anemia GERD (gastroesophageal reflux disease) Hernia Hypertension Morbid obesity Ovarian cyst Pulmonary embolism Tobacco abuse Surgical History Surgical History H/O gynecological procedure Hysteroscopy with dilation and curettage History of appendectomy History of removal of ovarian cyst Hx of cholecystectomy Family History Family History Grandparent Diabetes mellitus Alzheimer disease Cardiac abnormality Cerebrovascular accident Malignant neoplasm of prostate Father Hypertension Cerebrovascular accident Mother Ovarian cancer Family history of malignant neoplasm Hypertension Asthma Sibling Asthma Other Family history of allergic disorder Family history of cardiovascular disease Social History Social History Social History: 4 cigars/day. Has smoked off and on for about 3 years. She drinks 1 alcoholic drink per month. No drug use. She lives with her and 2 children. She is a full code. She nominates her to be the individual would make medical decisions for her if she is unable. Years smoked: 0.5 Smoking status: Never smoker Tobacco type: cigars Alcohol intake: never Substance
[2022-10-19] MEDS: fentaNYL CITRATE INJ (*CRX) 100 MCG/2 ML VIAL 50 MCG IV PUSH (23:57)
[2022-10-20] VITALS (181 sets, daily range): BP systolic 58–146; BP diastolic 25–116; PULSE 57–160; RESP 16–18; TEMP 36.5–37.2; O2SAT 89–100
[2022-10-20] MEDS: fentaNYL CITRATE INJ (*CRX) 100 MCG/2 ML VIAL IV PUSH (01:07)
--- NOTE | 2022-10-20 03:06 | WPDANESEPN ---
Anes - Epidural Procedure Note Date/Time: 10/20/22 03:06 Consent: I have discussed with the patient/family/POA, the placement of an epidural catheter and the use of epidural narcotic/local anesthetic for labor analgesia and/or postoperative pain management, including associated potential risks, benefits, complications and side effects. I have discussed alternative methods of labor analgesia and/or postoperative pain management. The patient/family/POA, understand(s) and wish(es) to proceed with epidural narcotic/local anesthetic for labor analgesia and/or postoperative pain management. Time-Out: A pre-procedural Time-Out was completed immediately before starting the procedure and confirmed: Patient Identification, Site, Procedure, Patient Position and the Availability of Requisite Equipment. Clinical Indications: Labor Pain Epidural Insertion Note Patient position: sitting Skin prep: chlorhexidine and sterile drape Needle: 18g Tuohy-Schliff Catheter: 20g Unstyleted Technique: Loss of resistance. Level of insertion: L4/5 Catheter skin whitley (cm): 10 Length in epidural space (cm): 15 Skin anesthesia: lidocaine 1% Test dose: 1.5% Lidocaine with [id number] Epi, negative for subarachnoid Inj and negative for intravascular Inj Time of test dose: 02:43 Observations: tolerated well
[2022-10-20] MEDS: LACTATED RINGERS 1,000 ML 125 ML IV CONT (06:20)
[2022-10-20] MEDS: ONDANSETRON INJ 4 MG/2 ML VIAL IV PUSH (06:37)
--- NOTE | 2022-10-20 08:01 | PM.OBPNLAB ---
Pain Control Date/time seen: 10/20/22 08:01 Pain control: tolerating well and epidural Pelvic Exam Dilation (cm): 3 Effacement (%): 50 station: -3 Amniotic membrane status: Ruptured Comments: clear fluid Status status: Category l Assessment and Plan Assessment: induction ongoing Comments: AROM for clear fluid. IUPC placed.
[2022-10-20] MEDS: SODIUM CHLORIDE 0.9% IV 300 ML 600 ML I-UTERINE (10:53)
[2022-10-20] MEDS: OXYTOCIN 30 UNITS/NS 500 ML 30 UNITS/500 ML BAG 999 UNITS IV CONT (11:52)
--- NOTE | 2022-10-20 12:03 | PM.OBPRVD ---
OB - Delivery Note Procedure Delivery date: 10/20/22 Procedure: Patient pushed for a spontaneous vaginal delivery. The fetus was delivered atraumatically and placed on the maternal abdomen. The cord was clamped and cut after 1 minute of life. The cord was double clamped and cut and a segment of cord was collected for cord gases. Cord blood was collected for blood type and Coomb's testing. The placenta delivered spontaneously and was noted to be intact. The perineum was inspected and there was a 1st degree perineal laceration. The laceration was repaired with 3-0 vicryl in the usual fashion. The uterus was firm and good hemostasis was noted. The patient and fetus were stable in the delivery room. Induction method: Per Cervidil Protocol Delivery augmentation: Rupture of Membranes and Pitocin Delivery monitor: External FHT Route of delivery: Episiotomy description: None Laceration Description: Perineal - 1st Degree Delivery repair: vicryl Specimen: Yes (placenta) Quantitative Blood Loss (ml): 150 Anesthesia type: Epidural Disposition: Floor () Complications: No immediate complications Baby Date of : 10/20/22 Time of : 11:49 Weeks of gestation at delivery: 39 gender: Female Weight (pounds): 5 Weight (ounces): 9 presentation: vertex position: Right Occiput Anterior Placenta delivery description: Spontaneous Cord Vessel Description: 3 Vessels, True Knot and Loose score one minute: 9 score five minutes: 9 AMG Delivery Billing Delivery Delivery: Delivery Charge
[2022-10-20] MEDS: OXYTOCIN 30 UNITS/NS 500 ML 30 UNITS/500 ML BAG 125 UNITS IV CONT (12:20)
[2022-10-20] MEDS: ACETAMINOPHEN 325 MG TABLET 650 MG PO ×2 (12:50→19:49)
--- NOTE | 2022-10-20 14:34 | OBPPTRN ---
Patient transferred to post room # 284 via wheelchair. Support person present. Oriented to unit, room, information board, rooming in, admission packet and security measures. Patient verbalizes understanding.
[2022-10-20] MEDS: BENZOCAINE 20% AER SPR (*SP) 56 GM CAN 1 SPRAY TOPICAL (14:35)
[2022-10-20] MEDS: WITCH HAZEL 40 PADS 1 PAD TOPICAL (14:35)
[2022-10-20] MEDS: ENOXAPARIN 40 MG/0.4 ML SYRINGE SUB-Q (17:56)
[2022-10-20] MEDS: LANOLIN (LANSINOH) 7.5 GM CREAM 1 APPLIC TOPICAL (17:57)
[2022-10-21] MEDS: HYDROcodone/acetaminophen (*CRX) 5-325 MG TABLET 1 TAB PO (01:09)
[2022-10-21 04:49] LABS: Hematocrit 34.4 % (37.0-47.0); Hemoglobin 10.9 g/dL (12.0-15.0)
--- NOTE | 2022-10-21 08:09 | PM.OBPNVD ---
OB - PN: Subj Subjective Date/time seen: 10/21/22 08:09 Patient comments: no complaints, pain well controlled and tolerating diet [employer] feeding status: exclusively breast feeding Narrative: patient doing well this AM. No complaints. Pt complaining of cramping but controlled with pain meds. She reports minimal bleeding. She is ambulating and voiding without difficulty. She is tolerating PO. She denies N/V, fever, chills. OB - PN: Obj Data Labs 10/21/22 04:08 Labs: Laboratory Results - last 24 hr 10/21/22 04:08 Hgb 10.9 L Hct 34.4 L OB - PN A/P Plan day: 1 Plan: routine care Comments: patient doing well H/H stable continue routine care Time Spent With Patient Time: Total time spent is greater than 50% in coordination of care (as documented) at patient's floor/unit and/or counseling patient: Time with patient: less than 15 minutes Review of Systems Review of Systems: All systems reviewed & are unremarkable except as noted in HPI and below Exam Const: General: comfortable and no acute distress Resp: Effort & Inspection: normal respiratory effort Cardio: Rate: regular rate GI: GI Palp: Yes Soft to palpation and No Tenderness to palpation present (GI) Auscultation: normal bowel sounds Other: fundus firm and below umbilicus. Psych: Affect: normal affect
[2022-10-21 08:20] VITALS: BP 115/57; PULSE 63; RESP 18; TEMP 36.8
[2022-10-21] MEDS: ACETAMINOPHEN 325 MG TABLET 650 MG PO ×2 (08:34→18:02)
[2022-10-21] MEDS: ASPIRIN 81 MG ENTERIC TABLET PO (08:35)
[2022-10-21] MEDS: FAMOTIDINE 20 MG TABLET PO (08:35)
[2022-10-21] MEDS: DOCUSATE SODIUM 100 MG CAPSULE PO ×2 (08:35→18:01)
[2022-10-21] MEDS: MULTIVIT/MIN/PREN/FOL AC/IRON TABLET 1 TAB PO (08:38)
--- NOTE | 2022-10-21 14:00 | PM.OBDSVD ---
DS: Admitting Diagnosis Discharge Date 10/22/22 Admitting Diagnosis intrauterine at term OB - DS: Summary OB Procedures : None OB Procedures Intrapartum: Spontaneous Vag Delivery OB Procedures: : None Peripartum Data Laceration Description: Perineal - 2nd Degree Status at Discharge Functional status at discharge: independent ambulation Overall status at discharge: patient is back to baseline Time Spent with Patient Time attestation: Total time spent providing and/or coordinating discharge services: Time spent: Less than 30 minutes Exam Const: General: comfortable and no acute distress Resp: Effort & Inspection: normal respiratory effort Auscultation: clear to auscultation bilaterally Cardio: Rate: regular rate GI: GI Palp: Yes Soft to palpation Auscultation: normal bowel sounds Other: Fundus firm below umbilicus Psych: Appearance: grossly normal Mental Status: mental status grossly normal Affect: normal affect DS: Data Data Completed and Pending Pending studies at discharge: Pending at discharge 10/20/22 12:34 Surgical [PTH] Routine Labs on day of discharge: Labs from last 24 hours 10/21/22 04:08 Hgb 10.9 L Hct 34.4 L Discharge Plan Discharge Discharging Clinician: Vimal Pugh Patient Disposition: Home, Self-Care Activity: as tolerated and pelvic rest Diet: regular Patient Instructions: Antibiotic Form, Vaginal Delivery (DC) Stand Alone Forms: General Discharge Information Follow-up/Referrals: Vimal Pugh MD [Physician] - Discharge Medications: New enoxaparin [Lovenox] 40 mg/0.4 mL Syringe 40 mg subcut 1800 42 Days Qty: 16.8 0RF polysaccharide iron complex 150 mg iron Capsule 150 mg PO BIDWM Qty: 60 0RF acetaminophen [Mapap (acetaminophen)] 325 mg Tablet 650 mg PO Q6H PRN (Reason: Mild Pain (1-3) Or Headache) Qty: 30 0RF Continued aspirin [Adult Low Dose Aspirin] 81 mg tablet,delayed release (DR/EC) 81 mg PO DAILY famotidine 20 mg tablet 20 mg PO DAILY ondansetron 4 mg tablet,disintegrating 4 mg PO Q6H PRN (Reason: nausea and vomiting) Qty: 30 2RF Discontinued heparin (porcine) 10,000 unit/mL solution 10,000 unit subcut DAILY Date of admission: 04/07/23 16:44 Primary Care Provider: UNKNOWN,DOCTOR Admitting Provider: Vimal Pugh Attending physician on admission: Vimal Pugh Condition: Stable
--- NOTE | 2022-10-21 15:24 | PC.NURSE ---
Discussed with mom the need to pump with every feeding attempt. Took hospital breastpump into mom's room and encouraged her to call for assistance with next feeding/pumping. Mom states understanding.
[2022-10-21] MEDS: ENOXAPARIN 40 MG/0.4 ML SYRINGE SUB-Q (18:02)
[2022-10-21 19:35] VITALS: BP 136/79; PULSE 91; RESP 18; TEMP 36.8
[2022-10-22] MEDS: ACETAMINOPHEN 325 MG TABLET 650 MG PO ×2 (02:30→07:00)
[2022-10-22] MEDS: DOCUSATE SODIUM 100 MG CAPSULE PO (07:00)
[2022-10-22 07:50] VITALS: BP 128/74; PULSE 73; RESP 18; TEMP 36.7; O2SAT 100
[2022-10-22 08:18] LABS: Rapid Plasma Reagin Non-Reactive (NonReactive)
[2022-10-22] MEDS: FAMOTIDINE 20 MG TABLET PO (09:00)
[2022-10-22] MEDS: ASPIRIN 81 MG ENTERIC TABLET PO (09:00)
[2022-10-22 09:34] VITALS: PULSE 73; RESP 18; O2SAT 100
[2022-10-24 10:30] VITALS: BP 126/71; PULSE 79; RESP 22; TEMP 37.3; O2SAT 100
== END 2022-10-22 11:10 | disposition home or self-care (01) | DRG 560 ==
LOC: ANHLDR 16:51 → ANHOB2 10-20 14:35
PROVIDERS: Admitting Provider Student in an Organized Health Care Education/Training Program; Visit Provider Student in an Organized Health Care Education/Training Program
DX: O99.02 Anemia complicating childbirth (principal); O16.4 Unspecified maternal hypertension, complicating childbirth; D64.9 Anemia, unspecified; Z37.0 Single live birth; Z3A.39 39 weeks gestation of pregnancy; O70.0 First degree perineal laceration during delivery; O99.62 Diseases of the digestive system complicating childbirth; K21.9 Gastro-esophageal reflux disease without esophagitis; O69.81X0 Labor and delivery complicated by cord around neck, without compression, not applicable or unspecified
CPT/HCPCS: 36415; 85014; 85018; 85025; 86592; 86850; 86900; 86901; 88307; A9270; J1650; J2405; J2590; J2795; J3010; J7030; J7120

== ENCOUNTER 2023-02-18 15:17 | Outpatient (CLI) | payer OTHER, SELFPAY | END 2023-02-18 15:18 | disposition home or self-care (01) | PROVIDERS: PCP Obstetrics & Gynecology; Visit Provider Anesthesiology | DX: D64.9 Anemia, unspecified (principal); Z01.818 Encounter for other preprocedural examination | CPT/HCPCS: 36415; 86850; 86900; 86901 ==

== ENCOUNTER 2023-02-21 00:04 | Day surgery (SDC) | payer OTHER, SELFPAY ==
[2023-02-15 13:02] VITALS: BMI 45.6
--- NOTE | 2023-02-15 13:21 | PC.NURSE ---
Addendum entered by Cecilia Allen RN 02/15/23 13:35: PER MD STEVEN SMITH 02/18/23 Original Note: Report to the Outpatient Waiting Room, entrance under the green pavilion located off [facility], at time _0730_ on date 02/21/23_. Planned Procedure Time: _0930 . Time changes happen often and if your time is changed the preop area will call you the afternoon before. - You and your visitor will be asked to self-screen and do not enter if you have any COVID symptoms. - A mask is optional within the hospital at this time. Patients may have clear liquids (water, carbonated beverages, clear teas, apple juice) until 3 hours prior to surgery with a maximum of 20 ounces. - No food from midnight until time of surgery Take the following medications with a SIP of water the morning of surgery: ____SERTRALINE___ DO NOT STOP ANY OF YOUR OTHER PRESCRIPTION MEDICATIONS PRIOR TO SURGERY ?EXCEPT THE FOLLOWING Medications to discontinue per physician HOLD_ASA & HOLD VITAMIN 02/18/23____ Date to take last dose__02/18/23___ Please no make-up, nail icelandic, hairspray, perfume, deodorant, or body powder the day of surgery. No jewelry (including any body piercings) or valuables the day of surgery, leave them at home. Please take a shower or bath the night before, or the morning of, surgery with an antibacterial HIBICLENS OR CHLORHEXIDINE GLUCONATE soap. Wear comfortable, loose fitting clothing. - Jewelry must be removed prior to entering the operating room. Rings and piercings that are not removed may be cut off. - The hospital will not accept responsibility for valuables. - Please leave all valuables, including medications, at home the day of surgery. If you are going home after surgery, a licensed transporter driver must drive you home. - NO public transportation without another adult if you receive anesthesia. - We recommend that an adult stay with you for 24 hours following discharge. - We also recommend that you do not drive, make important decision, drink alcoholic beverages, or take any drugs that were not prescribed by your health care provider for at least 24 hours after your discharge time. Follow any additional instructions given to you from your surgeon. If you or anyone in your household have experienced Covid symptoms in the past week, please notify your surgeon or the nurse liaison at the phone number below for possible testing. Telephone instructions given to __KALEB__and asked if any additional questions and then verbalized understanding. Patient advised to call surgeon office or pre surgery nurse liaison [phone] if any additional questions.
--- NOTE | 2023-02-20 10:29 | PM.IMHP ---
H&P: HPI History of Present Illness Date/Time: 02/20/23 10:29 32-year-old 3 para 3003 female presents for surgical management of uterine prolapse. She has longstanding history of vaginal pressure fullness and feeling as though things are falling out . Denies any urinary or bowel symptomatology that would be attributable to pelvic relaxation. We have discussed nonsurgical means in the form of pessary, and other more conservative manner of treating and she does not desire any of these options and does desire to proceed with hysterectomy. She has had a recent ultrasound which showed no abnormalities. Also of note she has had a history of pulmonary embolus was treated with Lovenox during her . Also has umbilical hernia for which Dr Diro will repair after the hysterectomy portion of the procedure. Chief Complaint: Uterine prolapse Review of Systems Review of Systems: All systems reviewed & are unremarkable except as noted in HPI and below PMFSH Past Medical History Medical History Anemia GERD (gastroesophageal reflux disease) Hernia Hypertension Morbid obesity Ovarian cyst Pulmonary embolism Tobacco abuse Surgical History Surgical History H/O gynecological procedure Hysteroscopy with dilation and curettage History of appendectomy History of removal of ovarian cyst Hx of cholecystectomy Family History Family History Grandparent Diabetes mellitus Alzheimer disease Cardiac abnormality Cerebrovascular accident Malignant neoplasm of prostate Father Hypertension Cerebrovascular accident Mother Ovarian cancer Family history of malignant neoplasm Hypertension Asthma Sibling Asthma Other Family history of allergic disorder Family history of cardiovascular disease Social History Social History Social History: 4 cigars/day. Has smoked off and on for about 3 years. She drinks 1 alcoholic drink per month. No drug use. She lives with her and 2 children. She is a full code. She nominates her to be the individual would make medical decisions for her if she is unable. Years smoked: 0.5 Smoking status: Former smoker Tobacco type: cigars Smoking end date: 02/15/23 Alcohol intake: current Substance use: never Substance use type: does not use Lack of Transportation: No Lack of Food: Sometimes True Current Housing: I Have Housing Concerned About Future Housing: No Difficulty Paying Gas/Electric Bills: YES Difficulty Paying for Meds: No Currently Unemployed: No Education: Trade/Vocational Certificate Difficulty w/ Childcare or Family Care: YES Living arrangements: with family Occupation/Education: occupation Gender identity (if verbalized by the patient): Female Sexual Orientation (if Verbalized by the Patient): Straight or Heterosexual Spiritual care concerns: No Meds Home Medications and Allergies Home Medications Medication Instructions Recorded Confirmed Type aspirin 81 mg tablet,delayed 81 mg PO DAILY 08/20/22 02/15/23 History release (Adult Low Dose Aspirin) drospirenone (contraceptive) 4 mg 1 tablet PO DAILY #28 tabs 11/19/22 02/15/23 Rx (28) tablet (Slynd) sertraline 50 mg tablet 50 mg PO DAILY #30 tabs 11/19/22 02/15/23 Rx pantoprazole 20 mg tablet,delayed 20 mg PO QAM 12/24/22 02/15/23 History release vit#24-iron amino acid 1 tablet PO DAILY 02/15/23 02/15/23 History chelat-folic acid 30 mg-975 mcg tablet Allergies Allergy/AdvReac Type Severity Reaction Status Date / Time No Known Allergies Allergy Verified 12/25/22 13:30 Exam Const: General: cooperative, healthy appearing and comfortable Resp: Effort & Inspection: normal respiratory effort
[2023-02-21] VITALS (10 sets, daily range): BP systolic 126–173; BP diastolic 67–103; PULSE 58–85; RESP 14–18; TEMP 36.2–37.1; O2SAT 93–100
--- NOTE | 2023-02-21 07:27 | WPDHPUPDATE1 ---
History and Physical Update Update Date/Time: 02/21/23 07:27 History and Physical has been reviewed, including an updated exam of the patient. There are NO changes in the patient's condition. Risks, benefits, and alternatives have been discussed and questions answered. Patient agrees to proceed with procedure.
[2023-02-21] MEDS: ACETAMINOPHEN 500 MG TABLET PO (08:20)
--- NOTE | 2023-02-21 08:29 | WPDANESEPPF ---
Anes - Initial Pre Proc Eval Procedure: Operation Date: 02/21/23 09:30 Proposed Procedures p Robotic Assisted Total Laparoscopic Hysterectomy with Bilateral Salpingectomy - Anam Levine MD s Open Incarcerated Umbilical Hernia Repair - Clark Mitchell DO Date/Time: 02/21/23 08:29 Surgeon: Anam Levine MD Pre Op Diagnosis: uterine prolapse, umbilical hernia Patient Data Age: 32 Gender: F Height: 1.7 m Weight: 132 kg Allergies Allergy/AdvReac Type Severity Reaction Status Date / Time No Known Allergies Allergy Verified 02/21/23 08:06 Home Medications Medication Instructions Recorded Confirmed Type aspirin 81 mg tablet,delayed 81 mg PO DAILY 08/20/22 02/15/23 History release (Adult Low Dose Aspirin) drospirenone (contraceptive) 4 mg 1 tablet PO DAILY #28 tabs 11/19/22 02/15/23 Rx (28) tablet (Slynd) sertraline 50 mg tablet 50 mg PO DAILY #30 tabs 11/19/22 02/15/23 Rx pantoprazole 20 mg tablet,delayed 20 mg PO QAM 12/24/22 02/15/23 History release vit#24-iron amino acid 1 tablet PO DAILY 02/15/23 02/15/23 History chelat-folic acid 30 mg-975 mcg tablet Patient hx anesthesia problems: none Family hx anesthesia problems: none Results Review: All pre-operative results and documents have been reviewed as part of the pre-operative evaluation. [facility] Past Medical History Medical History Anemia GERD (gastroesophageal reflux disease) Hernia Hypertension Morbid obesity Ovarian cyst Pulmonary embolism Tobacco abuse Surgical History Surgical History H/O gynecological procedure Hysteroscopy with dilation and curettage History of appendectomy History of removal of ovarian cyst Hx of cholecystectomy Family History Family History Grandparent Diabetes mellitus Alzheimer disease Cardiac abnormality Cerebrovascular accident Malignant neoplasm of prostate Father Hypertension Cerebrovascular accident Mother Ovarian cancer Family history of malignant neoplasm Hypertension Asthma Sibling Asthma Other Family history of allergic disorder Family history of cardiovascular disease Social History Social History Social History: 4 cigars/day. Has smoked off and on for about 3 years. She drinks 1 alcoholic drink per month. No drug use. She lives with her and 2 children. She is a full code. She nominates her to be the individual would make medical decisions for her if she is unable. Years smoked: 0.5 Smoking status: Former smoker Tobacco type: cigars Smoking end date: 02/15/23 Alcohol intake: current Substance use: never Substance use type: does not use Lack of Transportation: No Lack of Food: Sometimes True Current Housing: I Have Housing Concerned About Future Housing: No Difficulty Paying Gas/Electric Bills: YES Difficulty Paying for Meds: No Currently Unemployed: No Education: Trade/Vocational Certificate Difficulty w/ Childcare or Family Care: YES Living arrangements: with family Occupation/Education: occupation Gender identity (if verbalized by the patient): Female Sexual Orientation (if Verbalized by the Patient): Straight or Heterosexual Spiritual care concerns: No Anes - Eval Final PreProcedure Day of Procedure 02/21/23 08:29 Patient weight: morbidly obese Heart: regular rate and rhythm Lungs: clear to auscultation Airway: Mallampati scale class II Neurological: alert and oriented Last oral intake: >/= 8 hours ASA classification: III Emergent: no Anesthetic plan: proceed Anesthesia type and monitoring: general ETT and standard monitoring Results Review: All pre-operative results and documents have been reviewed as part of the pre-oper
--- NOTE | 2023-02-21 08:34 | PM.IMHP ---
H&P: HPI History of Present Illness Date/Time: 02/21/23 08:34 Chief Complaint: incarcerated umbilical hernia Narrative: 32 yo woman presents for umbilical hernia repair at time of hysterectomy. she denies any changes since last seen in office. Review of Systems Review of Systems: All systems reviewed & are unremarkable except as noted in HPI and below Constitutional: Constitutional: Denies chills, Denies fever(s), Denies headache(s) and Denies weight loss Eyes: Eyes: Denies change in vision ENT: Denies dizziness, Denies headache(s), Denies neck mass and Denies throat swelling Cardiovascular: Cardiovascular: Denies chest pain, Denies lightheadedness and Denies dyspnea Respiratory: Respiratory: Denies cough, Denies dyspnea and Denies wheezing Gastrointestinal: Gastrointestinal: Denies abdominal pain, Denies change in bowel habits, Denies nausea and Denies vomiting Genitourinary: Genitourinary: Denies hematuria and Denies dysuria Musculoskeletal: Musculoskeletal: Reports as per HPI Integumentary/Breasts: Skin/Breast: Reports as per HPI Neurologic: Denies dizziness and Denies headache(s) Allergic/Immunologic: Allergic/Immunologic: Denies throat swelling and Denies wheezing PMFSH Past Medical History Medical History Anemia GERD (gastroesophageal reflux disease) Hernia Hypertension Morbid obesity Ovarian cyst Pulmonary embolism Tobacco abuse Surgical History Surgical History H/O gynecological procedure Hysteroscopy with dilation and curettage History of appendectomy History of removal of ovarian cyst Hx of cholecystectomy Family History Family History Grandparent Diabetes mellitus Alzheimer disease Cardiac abnormality Cerebrovascular accident Malignant neoplasm of prostate Father Hypertension Cerebrovascular accident Mother Ovarian cancer Family history of malignant neoplasm Hypertension Asthma Sibling Asthma Other Family history of allergic disorder Family history of cardiovascular disease Social History Social History Social History: 4 cigars/day. Has smoked off and on for about 3 years. She drinks 1 alcoholic drink per month. No drug use. She lives with her and 2 children. She is a full code. She nominates her to be the individual would make medical decisions for her if she is unable. Years smoked: 0.5 Smoking status: Former smoker Tobacco type: cigars Smoking end date: 02/15/23 Alcohol intake: current Substance use: never Substance use type: does not use Lack of Transportation: No Lack of Food: Sometimes True Current Housing: I Have Housing Concerned About Future Housing: No Difficulty Paying Gas/Electric Bills: YES Difficulty Paying for Meds: No Currently Unemployed: No Education: Trade/Vocational Certificate Difficulty w/ Childcare or Family Care: YES Living arrangements: with family Occupation/Education: occupation Gender identity (if verbalized by the patient): Female Sexual Orientation (if Verbalized by the Patient): Straight or Heterosexual Spiritual care concerns: No Meds Home Medications and Allergies Home Medications Medication Instructions Recorded Confirmed Type aspirin 81 mg tablet,delayed 81 mg PO DAILY 08/20/22 02/15/23 History release (Adult Low Dose Aspirin) drospirenone (contraceptive) 4 mg 1 tablet PO DAILY #28 tabs 11/19/22 02/15/23 Rx (28) tablet (Slynd) sertraline 50 mg tablet 50 mg PO DAILY #30 tabs 11/19/22 02/15/23 Rx pantoprazole 20 mg tablet,delayed 20 mg PO QAM 12/24/22 02/15/23 History release vit#24-iron amino acid 1 tablet PO DAILY 02/15/23 02/15/23 History chelat-folic acid 30 mg-975 mcg tablet Allergies
--- NOTE | 2023-02-21 08:39 | WPDHPUPDATE1 ---
History and Physical Update Update Date/Time: 02/21/23 08:39 History and Physical has been reviewed, including an updated exam of the patient. There are NO changes in the patient's condition. Risks, benefits, and alternatives have been discussed and questions answered. Patient agrees to proceed with procedure.
[2023-02-21] MEDS: LACTATED RINGERS 1,000 ML 30 ML IV CONT ×2 (08:53→12:19)
[2023-02-21 08:59] LABS: Basophils Percent Auto 0.5 % (0.2-1.2); Eosinophils Absolute Auto 0.1 K/mm3 (0-0.3); Eosinophils Percent Auto 2.9 % (0-4.4); Hematocrit 38.7 % (37.0-47.0); Hemoglobin 11.8 g/dL (12.0-15.0); Immature Granulocyte Absolute 0.01 K/mm3 (0.00-0.031); Immature Granulocyte Percent A 0.2 % (0-0.5); Immature Platelet Fraction Pct 9.6 % (0.9-11.2); Lymphocytes Absolute Auto 1.36 K/mm3 (0.9-3.2); Lymphocytes Percent Auto 32.9 % (18.3-44.2); Mean Corpuscular HGB Conc 30.5 g/dl (32-36); Mean Corpuscular Volume 75.6 fl (80-100); Mean Platelet Volume 11.8 fl (7.4-10.4); Monocytes Absolute Auto 0.3 K/mm3 (0.1-0.6); Monocytes Percent Auto 6.5 % (2.6-8.5); Neutrophils Absolute Auto 2.4 K/mm3 (1.3-6.7); Platelet Count Result 239 k/mm3 (150-375); Red Blood Count 5.12 M/mm3 (4.2-5.4); Red Cell Distribution Width 16.3 % (11.5-14.5); White Blood Count 4.1 K/mm3 (4.5-10.0)
[2023-02-21] MEDS: KETOROLAC 15 MG/ML VIAL (*BKC) IV PUSH (09:00)
[2023-02-21] MEDS: ceFAZolin 3 GM/D5W 100 ML 100 ML IVPB (09:30)
--- NOTE | 2023-02-21 09:30 | SUR.PREOP ---
0915- spoke with Dr. Pedersen about pt elevated BP. Pt does not take any BP meds at home. No new orders given. Will continue to monitor during procedure.
[2023-02-21] MEDS: BUPIVACAINE/EPINEPHRINE 0.25% 10 ML VIAL 30 ML INFILTRATE (11:18)
--- NOTE | 2023-02-21 11:19 | W.PM.PROC2 ---
Procedure Note - Detailed Date of Procedure 02/21/23 Pre-op Diagnosis uterine prolapse, umbilical hernia Post-op Diagnosis Same Procedure Performed 1. Robotic assisted total laparoscopic hysterectomy with bilateral salpingectomy Surgeon Anam Levine MD Anesthesia General Findings Enlarged globular uterus with tubes noted without abnormality. Adhesions in the midline consistent with hernia. Description of Procedure Patient prepped and draped usual manner for this procedure. Cervical instruments placed for uterine mobility throughout the case. Abdominal trocar sites were marked and placed under direct visualization. Immediately the midline periumbilical adhesions were noted. These were able to be worked around as far as placing the instruments into the pelvis. Once this was done the surgeon moved to the console. Mesial salpinx cauterized and cut bilaterally and tubes were removed separately. Utero-ovarian ligament cauterized and cut and the round ligament cauterized and cut and posterior and anterior leaf were dissected to deflect bladder flap and to skeletonize the uterine vessels. Once this was undertaken the vessels were cauterized and cut bilaterally to remove circulation from the uterus. Once this was done the posterior cul-de-sac was entered and this was carried circumferentially around the cervix to release the cervix from the vagina. Uterus was delivered into the vagina. Cuff was then closed using V lock suture from the right angle to left line in the left angle to the midline with good approximation hemostasis noted. Irrigation was undertaken with no significant bleeding noted. [place] arm was placed across all of the incisions sites empirically. Gas was allowed to escape incisions approximated using 4-[address] Mitchell entered to proceed with his portion of the procedure. Estimated Blood Loss 50 Drains No Packing No Pathology Yes Complications No immediate complications Condition Stable Disposition PACU [facility] Billing Surgery - Charge Forward: Surgery Billing
--- NOTE | 2023-02-21 12:06 | W.PM.PROC2 ---
Procedure Note - Detailed Date of Procedure 02/21/23 Pre-op Diagnosis uterine prolapse, umbilical hernia Post-op Diagnosis Same (Incarcerated 2 cm umbilical hernia) Procedure Performed Open incarcerated 2 cm umbilical hernia repair Surgeon Clark Mitchell, DO Anesthesia General and Local (0.5% bupivacaine with epinephrine) Indications This is a 32-year-old woman who presented with a periumbilical bulge that she noticed about 1 year ago. She has had some discomfort with this. She was found to have an umbilical hernia incarcerated with omentum. Discussions were made with the patient about treatment options. Patient wanted to proceed with surgery at the time of hysterectomy. Recommended proceeding with open incarcerated umbilical hernia repair at the time of hysterectomy. Findings Open incarcerated umbilical hernia repair was performed. Patient was found have a 2 cm umbilical hernia incarcerated with omentum. The omentum and hernia sac were excised. The defect was only about 2 cm. This was repaired primarily using Ethibond [id number] sutures. A total of 3 sutures were placed transversely to bring the fascia together. Description of Procedure Procedure as well as risks, benefits, and alternatives were discussed with the patient. Written consent was obtained and placed in chart prior to procedure. Patient was brought back to surgical suite. She was placed supine on operating table. Time-out was done for patient and procedure. She then underwent robotic assisted hysterectomy. Please refer to Dr. Levine's note for details of his procedure. I was then called in to proceed with the hernia repair. A 5 cm curvilinear incision was made just superior to the umbilicus using a 15 blade scalpel. Electrocautery was then used for hemostasis and for dissection through subcutaneous tissue. The hernia sac was encountered and this was carefully dissected free from the umbilical skin and subcutaneous space using electrocautery the hernia sac was dissected all the way down to the level of the fascia. The hernia sac was then opened and I could not reduce the incarcerated omentum, therefore I excised this using a LigaSure bipolar cautery. I then was able to excise the hernia sac using electrocautery. The hernia defect was then closed using 0 Ethibond [id number] sutures. A total of 3 sutures were placed transversely to approximate the fascia without tension. Repair was inspected and appeared secure. % bupivacaine with epinephrine was then infiltrated locally room skin and subcutaneous tissue. The umbilical stalk was then reapproximated to the fascia using 3-0 Vicryl simple interrupted suture. Deep dermis was approximated using 3-0 Vicryl inverted interrupted sutures. The skin was then approximated using 4 Monocryl running subcuticular suture. Exofin was then applied on top. The patient was then awakened from anesthesia, extubated, and transferred to recovery. Estimated Blood Loss 50 Pathology Yes (Hernia sac and incarcerated omentum) Complications No immediate complications Condition Stable Disposition Observation [facility] Billing Surgery - Charge Forward: Surgery Billing
[2023-02-21] MEDS: fentaNYL CITRATE INJ (*CRX) 100 MCG/2 ML VIAL 25 MCG IV PUSH ×6 (12:36→13:17)
--- NOTE | 2023-02-21 13:36 | ADMGEN ---
[id number]-This patient, Ritika Zamora, was admitted to 2nd floor OB. Patient/family oriented to hospital policies and general routines including ID bracelet, bed and alarms, visiting hours, pain management, procedures, bathroom and other care routines, personal items, smoking policy, room service/diet, and visiting hours. Information on how to activate the Rapid Response Team has been discussed. Patient/Family are encouraged to report perceived risks to care and to ask questions if they do not understand what they are told or what they should do.
[2023-02-21] MEDS: DEXTROSE 5%/0.45% SOD CHL 1,000 ML 125 ML IV CONT (14:20)
[2023-02-21] MEDS: KETOROLAC 30 MG/ML VIAL (*BKC) IV PUSH (14:20)
[2023-02-21] MEDS: SIMETHICONE 80 MG TAB.CHEW PO (16:24)
[2023-02-21] MEDS: HYDROcodone/acetaminophen (*CRX) 10-325 MG TABLET 1 TAB PO ×2 (16:25→22:30)
[2023-02-22 00:25] VITALS: BP 143/67; PULSE 86; RESP 20; TEMP 37.2
[2023-02-22] MEDS: HYDROcodone/acetaminophen (*CRX) 10-325 MG TABLET 1 TAB PO ×2 (04:35→08:00)
[2023-02-22 04:45] VITALS: BP 134/73; PULSE 88; RESP 18; TEMP 36.8
[2023-02-22 04:50] LABS: Basophils Percent Auto 0.1 % (0.2-1.2); Eosinophils Percent Auto 0.1 % (0-4.4); Hematocrit 38.5 % (37.0-47.0); Hemoglobin 11.8 g/dL (12.0-15.0); Immature Granulocyte Absolute 0.02 K/mm3 (0.00-0.031); Immature Granulocyte Percent A 0.3 % (0-0.5); Immature Platelet Fraction Pct 10.9 % (0.9-11.2); Lymphocytes Absolute Auto 1.21 K/mm3 (0.9-3.2); Lymphocytes Percent Auto 15.3 % (18.3-44.2); Mean Corpuscular HGB Conc 30.6 g/dl (32-36); Mean Platelet Volume 11.6 fl (7.4-10.4); Monocytes Absolute Auto 0.4 K/mm3 (0.1-0.6); Monocytes Percent Auto 4.5 % (2.6-8.5); Neutrophils Absolute Auto 6.3 K/mm3 (1.3-6.7); Neutrophils Percent Auto 79.7 % (45.5-73.1); Platelet Count Result 273 k/mm3 (150-375); Red Blood Count 5.13 M/mm3 (4.2-5.4); Red Cell Distribution Width 16.6 % (11.5-14.5); White Blood Count 7.9 K/mm3 (4.5-10.0)
[2023-02-22 08:00] VITALS: BP 135/84; PULSE 70; RESP 18; TEMP 37.1; O2SAT 100
[2023-02-22] MEDS: PANTOPRAZOLE SOD SESQUIHYDRATE 20 MG TAB PO (08:00)
[2023-02-22] MEDS: SERTRALINE HCL 50 MG TABLET PO (08:00)
[2023-02-22] MEDS: SIMETHICONE 80 MG TAB.CHEW PO (08:00)
--- NOTE | 2023-02-22 10:17 | WPDANESPN ---
Anes - Prog Note Post-Op Date/Time: 02/22/23 10:17 Cardiovascular status: normal Respiratory status: normal Airway patency: baseline Mental status: baseline Post-Op hydration status: normal Vital Signs: Last Vital Signs Temp 37.1 C 02/22/23 08:00 Pulse 70 02/22/23 08:00 Resp 18 02/22/23 08:00 BP 135/84 02/22/23 08:00 Pulse Ox 100 02/22/23 08:00 O2 Del Method Room Air 02/21/23 14:00 O2 Flow Rate 6 02/21/23 12:45 Pain Score (VAS): 09/21 I/O: Intake & Output 02/21/23 02/22/23 02/22/23 23:59 07:59 15:59 Intake Total 1930 240 Output Total 1050 400 Balance 880 -160 Laboratory Tests 02/22/23 04:39 02/22/23 04:39 WBC 7.9 RBC 5.13 Hgb 11.8 L Hct 38.5 MCV 75.0 L MCH 23.0 L MCHC 30.6 L RDW 16.6 H Plt Count 273 MPV 11.6 H Immature Gran % (Auto) 0.3 Neut % (Auto) 79.7 H Lymph % (Auto) 15.3 L [place] % (Auto) 4.5 Eos % (Auto) 0.1 Baso % (Auto) 0.1 L Lymph # (Auto) 1.21 [place] # (Auto) 0.4 Eos # (Auto) 0.0 Baso # (Auto) 0.0 Abs Immat Gran (auto) 0.02 Absolute Neuts (auto) 6.3 Absolute Nucleated RBC 0.0 Nucleated RBC % 0.0 % Immature Plt Fraction 10.9 Post-procedural complaints: none Patient Feedback: Patient satisfied with anesthetic care.
--- NOTE | 2023-02-22 10:27 | WPDANESPN ---
Anes - Prog Note Post-Op Date/Time: 02/22/23 10:27 Cardiovascular status: normal Respiratory status: normal Airway patency: baseline Mental status: baseline Post-Op hydration status: normal Vital Signs: Last Vital Signs Temp 37.1 C 02/22/23 08:00 Pulse 70 02/22/23 08:00 Resp 18 02/22/23 08:00 BP 135/84 02/22/23 08:00 Pulse Ox 100 02/22/23 08:00 O2 Del Method Room Air 02/21/23 14:00 O2 Flow Rate 6 02/21/23 12:45 Pain Score (VAS): 0 I/O: Intake & Output 02/21/23 02/22/23 02/22/23 23:59 07:59 15:59 Intake Total 1930 240 Output Total 1050 400 Balance 880 -160 Laboratory Tests 02/22/23 04:39 02/22/23 04:39 WBC 7.9 RBC 5.13 Hgb 11.8 L Hct 38.5 MCV 75.0 L MCH 23.0 L MCHC 30.6 L RDW 16.6 H Plt Count 273 MPV 11.6 H Immature Gran % (Auto) 0.3 Neut % (Auto) 79.7 H Lymph % (Auto) 15.3 L [place] % (Auto) 4.5 Eos % (Auto) 0.1 Baso % (Auto) 0.1 L Lymph # (Auto) 1.21 [place] # (Auto) 0.4 Eos # (Auto) 0.0 Baso # (Auto) 0.0 Abs Immat Gran (auto) 0.02 Absolute Neuts (auto) 6.3 Absolute Nucleated RBC 0.0 Nucleated RBC % 0.0 % Immature Plt Fraction 10.9 Post-procedural complaints: none Patient Feedback: Patient satisfied with anesthetic care.
== END 2023-02-22 10:45 | disposition home or self-care (01) ==
LOC: ANHSURGERY 07:37 → ANHOB2 13:56
PROVIDERS: Surgery; Visit Provider Obstetrics & Gynecology
PROC: (CPT 58571; principal; 2023-02-21 09:30)
PROC: (CPT 49592; 2023-02-21 09:30)
DX: N81.4 Uterovaginal prolapse, unspecified (principal); K42.0 Umbilical hernia with obstruction, without gangrene; D25.1 Intramural leiomyoma of uterus; D64.9 Anemia, unspecified; I10 Essential (primary) hypertension; K21.9 Gastro-esophageal reflux disease without esophagitis; Z86.711 Personal history of pulmonary embolism; F17.290 Nicotine dependence, other tobacco product, uncomplicated; Z79.82 Long term (current) use of aspirin; E66.01 Morbid (severe) obesity due to excess calories; Z68.42 Body mass index [BMI] 45.0-49.9, adult
CPT/HCPCS: 49592; 58571; S2900; 36415; 85025; 85055; 88302; 88307; 99199; A9270; J0690; J1100; J1170; J1885; J2250; J2405; J2704; J2710; J3010; J7030; J7120

== ENCOUNTER 2023-05-07 08:23 | Emergency (ER) | payer OTHER, SELFPAY ==
--- NOTE | 2023-05-07 08:30 | ED.GENADULT ---
HPI - General Adult General Chief complaint: Upper Respiratory Infection Stated complaint: Sore Throat/Left Ear Irritation Time Seen by Provider: 05/07/23 08:35 Source: patient, RN notes reviewed and old records reviewed Mode of arrival: ambulatory Limitations: no limitations History of Present Illness HPI narrative: 33-year-old female presents to the [facility] with complaints of sore throat and left ear pain. Related Data Home Medications Medication Instructions Recorded Confirmed aspirin 81 mg tablet,delayed 81 mg PO DAILY 08/20/22 05/07/23 release (Adult Low Dose Aspirin) metoclopramide HCl 5 mg tablet 5 mg PO DAILY 03/12/23 05/07/23 Allergies Allergy/AdvReac Type Severity Reaction Status Date / Time No Known Allergies Allergy Verified 05/07/23 08:34 Review of Systems Review of Systems: All systems reviewed & are unremarkable except as noted in HPI and below Constitutional: Constitutional: Reports no additional constitutional complaints Eyes: Eyes: Reports no additional eye complaints ENT: Reports as per HPI, Reports otalgia and Reports sore throat Cardiovascular: Cardiovascular: Reports no additional cardiovascular complaints, Denies chest pain and Denies dyspnea Respiratory: Respiratory: Reports no additional respiratory complaints, Denies chest congestion, Denies cough and Denies dyspnea Gastrointestinal: Gastrointestinal: Reports no additional gastrointestinal complaints, Denies abdominal pain, Denies nausea and Denies vomiting Musculoskeletal: Musculoskeletal: Reports no additional musculoskeletal complaints Integumentary/Breasts: Skin/Breast: Reports system reviewed and no additional complaints, except as docu Neurologic: Reports system reviewed and no additional complaints, except as documented Psychiatric: Psychiatric: Reports no additional psychiatric complaints Allergic/Immunologic: Allergic/Immunologic: Reports no additional allergic/immunologic complaints [facility] Past Medical History Medical History Anemia GERD (gastroesophageal reflux disease) Hernia Hypertension Morbid obesity Ovarian cyst Pulmonary embolism Tobacco abuse Surgical History Surgical History H/O gynecological procedure Hysteroscopy with dilation and curettage H/O umbilical hernia repair 02/21/23 Open incarcerated 2 cm umbilical hernia repair History of appendectomy History of removal of ovarian cyst History of robot-assisted laparoscopic hysterectomy (02/21/23) Robotic assisted total laparoscopic hysterectomy with bilateral salpingectomy Hx of cholecystectomy Family History Family History Grandparent Diabetes mellitus Alzheimer disease Cardiac abnormality Cerebrovascular accident Malignant neoplasm of prostate Father Hypertension Cerebrovascular accident Mother Ovarian cancer Family history of malignant neoplasm Hypertension Asthma Sibling Asthma Other Family history of allergic disorder Family history of cardiovascular disease Social History Social History Social History: 4 cigars/day. Has smoked off and on for about 3 years. She drinks 1 alcoholic drink per month. No drug use. She lives with her and 2 children. She is a full code. She nominates her to be the individual would make medical decisions for her if she is unable. Years smoked: 0.5 Smoking status: Former smoker Tobacco type: cigars Smoking end date: 02/15/23 Alcohol intake: current Substance use: never Substance use type: does not use Lack of Transportation: No Lack of Food: Sometimes True Current Housing: I Have Housing Concerned About Future Housing: No Difficulty Paying Gas/Electric Bills: YES Difficulty Paying for Meds: No Currently Unemployed: No
[2023-05-07 08:34] VITALS: BP 115/50; PULSE 77; RESP 16; TEMP 36.5; O2SAT 100
== END 2023-05-07 09:07 | disposition home or self-care (01) ==
PROVIDERS: Emergency Provider Nurse Practitioner; PCP Physician Assistant
DX: J06.9 Acute upper respiratory infection, unspecified (principal); J40 Bronchitis, not specified as acute or chronic; H65.03 Acute serous otitis media, bilateral; Z87.891 Personal history of nicotine dependence; K21.9 Gastro-esophageal reflux disease without esophagitis; I10 Essential (primary) hypertension; E66.01 Morbid (severe) obesity due to excess calories; Z68.42 Body mass index [BMI] 45.0-49.9, adult; Z86.711 Personal history of pulmonary embolism; Z79.82 Long term (current) use of aspirin
CPT/HCPCS: 87081; 87880; 99213; G0463

== ENCOUNTER 2024-02-21 13:17 | Emergency (ER) | payer OTHER, SELFPAY ==
--- NOTE | 2024-02-21 13:22 | ED.GENADULT ---
HPI - General Adult General Chief complaint: Dental/Oral Stated complaint: Dental/Throat Pain Time Seen by Provider: 02/21/24 13:23 Source: patient, RN notes reviewed and old records reviewed Mode of arrival: ambulatory Limitations: no limitations History of Present Illness HPI narrative: 33-year-old female presents to the [facility] with complaints of right lower dental pain, swelling. Patient states the swelling and the discomfort started yesterday. Patient with very poor dentition. States that she tried taking some Tylenol for her symptoms. It has been several years since patient has seen a dentist Related Data Allergies Allergy/AdvReac Type Severity Reaction Status Date / Time No Known Allergies Allergy Verified 02/21/24 13:21 Review of Systems Review of Systems: All systems reviewed & are unremarkable except as noted in HPI and below Constitutional: Constitutional: Reports no additional constitutional complaints Eyes: Eyes: Reports no additional eye complaints ENT: Reports as per HPI Cardiovascular: Cardiovascular: Reports no additional cardiovascular complaints, Denies chest pain and Denies dyspnea Respiratory: Respiratory: Reports no additional respiratory complaints, Denies chest congestion, Denies cough and Denies dyspnea Gastrointestinal: Gastrointestinal: Reports no additional gastrointestinal complaints, Denies abdominal pain, Denies nausea and Denies vomiting Musculoskeletal: Musculoskeletal: Reports no additional musculoskeletal complaints Integumentary/Breasts: Skin/Breast: Reports system reviewed and no additional complaints, except as docu Neurologic: Reports system reviewed and no additional complaints, except as documented Psychiatric: Psychiatric: Reports no additional psychiatric complaints Allergic/Immunologic: Allergic/Immunologic: Reports no additional allergic/immunologic complaints PMFSH Past Medical History Medical History Anemia GERD (gastroesophageal reflux disease) Hernia Hypertension Morbid obesity Ovarian cyst Pulmonary embolism Tobacco abuse Surgical History Surgical History H/O gynecological procedure Hysteroscopy with dilation and curettage H/O umbilical hernia repair 02/21/23 Open incarcerated 2 cm umbilical hernia repair History of appendectomy History of removal of ovarian cyst History of robot-assisted laparoscopic hysterectomy (02/21/23) Robotic assisted total laparoscopic hysterectomy with bilateral salpingectomy Hx of cholecystectomy Family History Family History Grandparent Diabetes mellitus Alzheimer disease Cardiac abnormality Cerebrovascular accident Malignant neoplasm of prostate Father Hypertension Cerebrovascular accident Mother Ovarian cancer Family history of malignant neoplasm Hypertension Asthma Sibling Asthma Other Family history of allergic disorder Family history of cardiovascular disease Social History Social History Social History: 4 cigars/day. Has smoked off and on for about 3 years. She drinks 1 alcoholic drink per month. No drug use. She lives with her and 2 children. She is a full code. She nominates her to be the individual would make medical decisions for her if she is unable. Years smoked: 0.5 Smoking status: Former smoker Tobacco type: cigars Smoking end date: 02/15/23 Alcohol intake: current Substance use: never Substance use type: does not use Lack of Transportation: No Lack of Food: Sometimes True Current Housing: I Have Housing Concerned About Future Housing: No Difficulty Paying Gas/Electric Bills: YES Difficulty Paying for Meds: No Currently Unemployed: No Education: Trade/Vocational Certificate Difficulty w/ Childcare or Family Ca
[2024-02-21 13:25] VITALS: BP 142/80; PULSE 77; RESP 16; TEMP 36.4; O2SAT 98
== END 2024-02-21 13:36 | disposition home or self-care (01) ==
PROVIDERS: Emergency Provider Nurse Practitioner; PCP Physician Assistant
DX: K04.7 Periapical abscess without sinus (principal); K06.020 Generalized gingival recession, unspecified; K21.9 Gastro-esophageal reflux disease without esophagitis; I10 Essential (primary) hypertension; E66.01 Morbid (severe) obesity due to excess calories; Z68.42 Body mass index [BMI] 45.0-49.9, adult; Z86.711 Personal history of pulmonary embolism
CPT/HCPCS: 99213; G0463

== ENCOUNTER 2024-04-07 08:05 | Emergency (ER) | payer OTHER, SELFPAY ==
--- NOTE | 2024-04-07 08:06 | ED.URI ---
HPI - URI/Sore Throat General Chief Complaint: Upper Respiratory Infection Stated Complaint: cough,throat hurts, right ear pain,loss of voice Time Seen by Provider: 04/07/24 08:31 Source: patient and RN notes reviewed Mode of arrival: ambulatory Limitations: no limitations History of Present Illness HPI Narrative: 33-year-old female presents with concern for 4 day history of sore throat, productive cough, hoarse voice. She reports she took DayQuil without relief. She denies fever, body aches, chills, sweats. Reports ear pain. MD elicited complaint: cough and sore throat Related Data Home Medications Medication Instructions Recorded Confirmed sertraline 50 mg tablet 50 mg PO DAILY 04/07/24 04/07/24 Allergies Allergy/AdvReac Type Severity Reaction Status Date / Time No Known Allergies Allergy Verified 04/07/24 08:11 Review of Systems Review of Systems: CONSTITUTIONAL: Denies malaise, chills, sweats, or fever. EYES: Denies visual changes, redness, or discharge. ENT: Reports otalgia and sore throat. CARDIOVASCULAR: Denies chest pain, palpitations, or edema. RESPIRATORY: Reports productive cough. Denies dyspnea. GASTROINTESTINAL: Denies abdominal pain, nausea, vomiting, diarrhea SKIN: Denies rash or itching. MUSCULOSKELETAL: Denies myalgia. NEUROLOGIC: Denies headache. All systems reviewed & are unremarkable except as noted in HPI and below PMFSH Past Medical History Medical History Anemia GERD (gastroesophageal reflux disease) Hernia Hypertension Morbid obesity Ovarian cyst Pulmonary embolism Tobacco abuse Surgical History Surgical History H/O gynecological procedure Hysteroscopy with dilation and curettage H/O umbilical hernia repair 02/21/23 Open incarcerated 2 cm umbilical hernia repair History of appendectomy History of removal of ovarian cyst History of robot-assisted laparoscopic hysterectomy (02/21/23) Robotic assisted total laparoscopic hysterectomy with bilateral salpingectomy Hx of cholecystectomy Family History Family History Grandparent Diabetes mellitus Alzheimer disease Cardiac abnormality Cerebrovascular accident Malignant neoplasm of prostate Father Hypertension Cerebrovascular accident Mother Ovarian cancer Family history of malignant neoplasm Hypertension Asthma Sibling Asthma Other Family history of allergic disorder Family history of cardiovascular disease Social History Social History Social History: 4 cigars/day. Has smoked off and on for about 3 years. She drinks 1 alcoholic drink per month. No drug use. She lives with her and 2 children. She is a full code. She nominates her to be the individual would make medical decisions for her if she is unable. Years smoked: 0.5 Smoking status: Former smoker Tobacco type: cigars Smoking end date: 02/15/23 Alcohol intake: current Substance use: never Substance use type: does not use Lack of Transportation: No Lack of Food: Sometimes True Current Housing: I Have Housing Concerned About Future Housing: No Difficulty Paying Gas/Electric Bills: YES Difficulty Paying for Meds: No Currently Unemployed: No Education: Trade/Vocational Certificate Difficulty w/ Childcare or Family Care: YES Living arrangements: with family Occupation/Education: occupation Gender identity (if verbalized by the patient): Female Sexual Orientation (if Verbalized by the Patient): Straight or Heterosexual Spiritual care concerns: No Comments At time of signature, agree with nursing past medical, surgical, social and family history. There is no relevant family history pertinent to the presenting complaint Exam Narrative: GENERAL: Well-appearing, well-no
[2024-04-07 08:13] VITALS: BP 140/79; PULSE 73; RESP 16; TEMP 36.6; O2SAT 100
[2024-04-07 08:51] LABS: EDSTREPNEGPOS1 Negative (Negative)
== END 2024-04-07 08:45 | disposition home or self-care (01) ==
PROVIDERS: Emergency Provider Nurse Practitioner
DX: J40 Bronchitis, not specified as acute or chronic (principal); I10 Essential (primary) hypertension; Z79.899 Other long term (current) drug therapy; Z87.891 Personal history of nicotine dependence
CPT/HCPCS: 87081; 87880; 99213; G0463

== ENCOUNTER 2024-08-05 08:07 | Emergency (ER) | payer OTHER, SELFPAY ==
[2024-08-05 08:18] VITALS: BP 156/102; PULSE 75; RESP 15; TEMP 36.3; O2SAT 100
--- NOTE | 2024-08-05 08:20 | ED_ITS ---
HPI - Dental/Oral General Chief complaint: Dental/Oral Stated complaint: Dental Pain Time Seen by Provider: 08/05/24 08:20 Source: patient, RN notes reviewed and old records reviewed Mode of arrival: ambulatory Limitations: no limitations History of Present Illness HPI Narrative: Patient presents with complaints of left-sided dental pain for couple of days, this has progressed into left-sided facial pain. She denies any injury or trauma. States that she does have a dental appointment next week, but reports that pain is worsening. She has some associated swelling to the left lower gingiva, reports some foul tasting drainage and pain that radiates to the left ear. There is no associated facial swelling. She denies any fever, chills, sweats. She has been taking multiple [id number] medications for her symptoms with poor relief. Related Data Allergies Allergy/AdvReac Type Severity Reaction Status Date / Time No Known Allergies Allergy Verified 08/05/24 08:39 Review of Systems Review of Systems: All systems reviewed & are unremarkable except as noted in HPI and below Constitutional: Constitutional: Reports no additional constitutional complaints ENT: Reports system reviewed and no additional complaints, except as documented, Reports dental pain and Reports otalgia Cardiovascular: Cardiovascular: Reports no additional cardiovascular complaints Respiratory: Respiratory: Reports no additional respiratory complaints Gastrointestinal: Gastrointestinal: Reports no additional gastrointestinal complaints PMFSH Past Medical History Medical History Anemia GERD (gastroesophageal reflux disease) Hernia Hypertension Morbid obesity Ovarian cyst Pulmonary embolism Tobacco abuse Surgical History Surgical History History of robot-assisted laparoscopic hysterectomy (02/21/23) Robotic assisted total laparoscopic hysterectomy with bilateral salpingectomy H/O umbilical hernia repair 02/21/23 Open incarcerated 2 cm umbilical hernia repair H/O gynecological procedure Hysteroscopy with dilation and curettage History of removal of ovarian cyst Hx of cholecystectomy History of appendectomy Family History Family History Grandparent Diabetes mellitus Alzheimer disease Cardiac abnormality Cerebrovascular accident Malignant neoplasm of prostate Father Hypertension Cerebrovascular accident Mother Ovarian cancer Family history of malignant neoplasm Hypertension Asthma Sibling Asthma Other Family history of allergic disorder Family history of cardiovascular disease Social History Social History Social History: 4 cigars/day. Has smoked off and on for about 3 years. She drinks 1 alcoholic drink per month. No drug use. She lives with her and 2 children. She is a full code. She nominates her to be the individual would make medical decisions for her if she is unable. Years smoked: 0.5 Smoking status: Former smoker Tobacco type: cigars Smoking end date: 02/15/23 Alcohol intake: current Substance use: never Substance use type: does not use Lack of Transportation: No Lack of Food: Sometimes True Current Housing: I Have Housing Concerned About Future Housing: No Difficulty Paying Gas/Electric Bills: YES Difficulty Paying for Meds: No Currently Unemployed: No Education: Trade/Vocational Certificate Difficulty w/ Childcare or Family Care: YES Living arrangements: with family Occupation/Education: occupation Gender identity (if verbalized by the patient): Female Sexual Orientation (if Verbalized by the Patient): Straight or Heterosexual Spiritual care concerns: No Comments At the time of my signature, I reviewed and agree with the nursing past medical, surgical, social, and family history. There is no relevant family history pertinent to the patient complaint. Exam Const: General: cooperative, no acute distress, alert, awake and uncomfortable Orientation/consciousness: oriented to person, oriented to place and oriented to time HENMT: Head: normal to inspection Ears: TM's normal bilaterally Mouth: Yes moist mucous membranes Teeth and gingiva: gingiva abnormal with purulent discharge and poor dentition Resp: Effort & Inspection: normal respiratory effort and able to speak in complete sentences Auscultation: clear to auscultation bilaterally, no crackles, no rales, no rhonchi and no wheezes Cardio: Palpation: normal PMI Rate: regular rate Rhythm: regular rhythm Heart sounds: S1 normal heart sound present and S2 normal heart sound present Neuro: General: oriented to person, oriented to place and oriented to time Cranial nerves: Yes CN's II-XII intact bilaterally Psych: Appearance: grossly normal Thought process: Normal thought process present Insight: Good insight present (Psych) Judgement: Good judgement present (Psych) Course Course Level of Care: Express Care Visit Vital Signs Vital signs: Vital Signs Temperature 97.3 F L 08/05/24 08:18 Pulse Rate 75 08/05/24 08:18 Respiratory Rate 15 08/05/24 08:18 Blood Pressure 156/102 H 08/05/24 08:18 Pulse Oximetry 100 08/05/24 08:18 Oxygen Delivery Room Air 08/05/24 08:18 Temperature 97.3 F L 08/05/24 08:18 Pulse Rate 75 08/05/24 08:18 Respiratory Rate 15 08/05/24 08:18 Blood Pressure 156/102 H 08/05/24 08:18 Pulse Oximetry 100 08/05/24 08:18 Oxygen Delivery Room Air 08/05/24 08:18 Reviewed MDM - Dental/Oral MDM Narrative Medical decision making narrative: Patient with dental abscess, no swelling under the tongue, she is managing own secretions. Nontoxic appearing, stable for discharge home on p.o. antibiotic therapy. Advised to keep scheduled dental appointment. Elevated blood pressure discussed. Discharge instructions reviewed with patient, as well as provided in writing per nursing staff. The instructions also include specific and strict return/GO TO THE ER as well as f/u information. All questions have been answered, and the patient deny any further questions with discharge and discharge plan. Some parts of this dictation were generated by voice recognition software and may contain typographical and/or grammatical inaccuracies. Differential Diagnosis Differential diagnosis: Likely dental caries, toothache and dental abscess Medical Records Attestation: I reviewed the patient's medical records. Discharge Plan Discharge Clinical Impression: Dental abscess Patient Disposition: Home, Self-Care Condition: Stable Instructions: Antibiotic Form, Dental Abscess (ED) Additional Instructions: Keep scheduled dentist appointment. Take all medications as prescribed. Emergency department for new or worse symptoms. Blood pressure elevated today at 156/102. Please discuss this with your primary care provider as soon as possible Patient Language: Italian Prescriptions: New amoxicillin 875 mg tablet 875 mg PO Q12H Qty: 20 0RF naproxen [Naprosyn] 500 mg tablet 500 mg PO BID PRN (Reason: pain) Qty: 20 0RF Follow-up/Referrals: PHYSICIAN,ELECTRONIC REPAIR TROUBLESHOOTER [Primary Care Provider] - Stand Alone Forms: Work/School Release IP Time of Disposition: 08:46
== END 2024-08-05 08:58 | disposition home or self-care (01) ==
PROVIDERS: Emergency Provider Nurse Practitioner Family
DX: K04.7 Periapical abscess without sinus (principal); Z87.891 Personal history of nicotine dependence; I10 Essential (primary) hypertension; K21.9 Gastro-esophageal reflux disease without esophagitis; E66.01 Morbid (severe) obesity due to excess calories; Z68.42 Body mass index [BMI] 45.0-49.9, adult; Z86.711 Personal history of pulmonary embolism
CPT/HCPCS: 99213; G0463